=== PATIENT | female | born 1975 | race Caucasian/White ===

== ENCOUNTER 2022-09-06 07:00 | Emergency (ER) | payer MEDICAID, SELFPAY ==
[2022-09-06 07:01] VITALS: BP 143/89; PULSE 90; RESP 14; TEMP 36.3; O2SAT 100; BMI 24.5
--- NOTE | 2022-09-06 07:14 | EX.ED.VIS.UR ---
HPI HPI - URI History of Present Illness Chief Complaint: Ear Problem Informant: patient and spouse/S.O. Narrative Narrative: 47-year-old female presenting to the emergency room with 4 days of sore throat and bilateral ear pain. She notes an associated cough and rhinorrhea. She states she has bumps in the back of her throat and she has not been able to eat anything for 2 days she denies any rashes vomiting diarrhea. She notes that she has placed cotton in her ears because the cold makes her ears very sensitive and more painful. It was the increase in pain that led her to the emergency department this morning. ROS ROS ED Constitutional Constitutional ED: Denies chills, fever(s) or weight loss Eyes Eyes: Denies change in vision or diplopia ENT ENT ED: Reports ear pain, rhinorrhea and sore throat Cardiovascular Cardiovascular: Denies chest pain, orthopnea, palpitations or racing heartbeat Respiratory/Chest Respiratory/Chest: Reports cough; Denies dyspnea, dyspnea on exertion or orthopnea Gastrointestinal Gastrointestinal: Denies abdominal pain, diarrhea, nausea or vomiting Genitourinary Genitourinary ED: Denies dysuria, hematuria or urinary frequency Musculoskeletal Musculoskeletal: Denies arthralgias or myalgias Integumentary Denies abscess or rash Neurologic Neurologic: Denies headache(s) or weakness Psychiatric Psychiatric: Denies anxiety, depression, suicidal ideation or suicidal thoughts Endocrine Endocrinology: Denies polydipsia, polyphagia or polyuria Allergic/Immunologic Allergic/Immunologic ED: Denies mouth swelling, tongue swelling or urticaria PFSH PFSH Home Medications cefdinir 300 mg capsule 300 mg PO BID #20 caps 09/06/22 [Rx Last Taken Unknown] lidocaine HCl 2 % mucosal solution (Lidocaine Viscous) 5 ml PO TID PRN pain #200 mL 09/06/22 [Rx Last Taken Unknown] Allergy/AdvReac Type Severity Reaction Status Date / Time acetaminophen [From Vicodin] AdvReac Vomiting Verified 09/06/22 07:03 hydrocodone [From Vicodin] AdvReac Vomiting Verified 09/06/22 07:03 Social History (Updated 09/06/22 @ 07:[address] Yoan Petit, DO) current gender identity: female substance use type: does not use EXAM Physical Exam Const Vital Signs: 09/06/22 07:01 Temperature 97.3 F L Temperature Source Temporal Pulse Rate 90 Respiratory Rate 14 Blood Pressure 143/89 H Blood Pressure Mean 107 Pulse Ox 100 Oxygen Delivery Method Room Air Positive well nourished and well developed General Appearance ED: well developed HEENT Reports normocephalic, head/scalp atraumatic and moist mucous membranes HEENT Narrative: The patient appears to have a viral stomatitis with lesions of the soft palate. There is no exudate on the tonsils. Uvula is not swollen. She is handling her secretions normally and there is no trismus. Right tympanic membrane shows erythema bulging and loss of landmarks. The left tympanic membrane appears retracted Eyes PERRL and EOMs intact bilaterally Neck no lymphadenopathy, supple and no JVD Resp normal respiratory effort and clear to auscultation bilaterally Cardio regular rate, regular rhythm and no murmurs GI normal to inspection, nondistended, normoactive bowel sounds and non-tender Palpation: soft Back/Spine no CVA tenderness and normal ROM Extremity normal to inspection General Extremety ED: Negative for edema General Extremity: Negative for edema Neuro oriented x3 and CN's II-XII intact bilaterally Sensorium / Orientation: alert Motor Exam: strength 5/5 throughout Psych mental status grossly normal Mood & Affect: Negative for depressed or tearful Skin no rashes or lesions noted and no wounds MDM MDM MDM Narrative Medical decision making narrative: The patient will be started on Omnicef for the otitis media and viscous lidocaine for the viral stomatitis. Follow-up with primary care Discharge Plan Triage Chief Complaint: Ear Problem ED Provider: Yoan Petit Dx/Rx/DC Orders Clinical Impression: Stomatitis, Otitis media Instructions: ED Otitis Media Antibiotic ..., ED Stomatitis (Child) Prescriptions: New cefdinir 300 mg capsule 300 mg PO BID Qty: 20 0RF lidocaine HCl [Lidocaine Viscous] 2 % solution 5 ml PO TID PRN (Reason: pain) Qty: 200 0RF Rx Instructions: Gargle and spit Disposition Disposition: Home, Self Care
== END 2022-09-06 07:41 | disposition home or self-care (01) ==
LOC: ED 07:41
PROVIDERS: Emergency Provider Emergency Medicine; Visit Provider Emergency Medicine
DX: H66.93 Otitis media, unspecified, bilateral (principal); J02.9 Acute pharyngitis, unspecified; R51.9 Headache, unspecified; K12.1 Other forms of stomatitis
CPT/HCPCS: 99282

== ENCOUNTER 2025-06-03 18:40 | Inpatient (IN) | payer MEDICAID, SELFPAY ==
[2025-06-03 18:41] VITALS: BP 165/93; PULSE 74; RESP 16; TEMP 36.7; O2SAT 97; BMI 28.5
[2025-06-03 19:49] LABS: Hematocrit 34.4 % (37-47); Hemoglobin 11.3 g/dL (12.0-15.0); Immature Granulocytes Count 0.010 X10^3/uL (0.0-0.0); Mean Corp Hgb Conc 32.8 g/dL (32-36); Mean Corpuscular Volume 84.9 fL (81-99); Mean Platelet Vol. 9.9 fl (6.2-12.0); NRBC Flagged by Analyzer 0 % (0-5); Platelet Count 205 K/mm3 (150-450); RBC Distribution Width CV 15.5 % (11.6-14.6); RBC Distribution Width SD 48.0 fl (35.1-43.9); Red Blood Count 4.05 M/mm3 (4.2-5.4); White Blood Count 4.0 K/mm3 (4.4-11.0)
[2025-06-03 20:12] LABS: Internal QC Validated? YES +Cl - CLEAR BKGD; Pregnancy, Serum, hCG Quali. NEGATIVE Negative; Record Kit Lot#, Serum Preg. 962302
[2025-06-03 20:15] LABS: Alcohol, Blood (Medical)-Serum < 10.1 mg/dL (<=10.0)
[2025-06-03 20:16] LABS: Anion Gap 12 (5-15); BUN 14 mg/dL (4-19); BUN/Creat Ratio 12.1 RATIO (10-20); Calcium,Total 9.3 mg/dL (7.6-11.0); Carbon Dioxide 23.5 mmol/L (21.0-32.0); Chloride 103 mmol/L (98-108); Estimated Creatinine Clearance 55.16 ml/min (50-250); Glucose 99 mg/dL (70-99); Potassium 4.3 mmol/L (3.3-5.1)
--- NOTE | 2025-06-03 20:40 | EX.ED.DYSGE1 ---
HPI History of Present Illness Chief Complaint: Substance Abuse Narrative Narrative: Chief complaint and HPI: Opiate detox. 49-year-old female with past medical history of depression, anxiety, HTN, chronic pain presents for evaluation of detox from opiates. Patient states for the past 6 months she has been obtaining what she thinks is Percocet from a friend. States that she has been taking the medication every 4 hours. She states that she has decided that she would like help for her addiction. She states her last Percocet was at 8:30 AM. She denies history of other illicit drug use. Endorses chills at this time however denies any fever, shortness of breath, chest pain, abdominal pain, nausea, vomiting. Review of systems: See HPI Medications: As listed on the chart Allergies: As listed on the chart PFSH: Per chart Vital signs: As listed on the chart. Reviewed. Physical exam: Gen: A&O x3, NAD Head: Normocephalic, atraumatic Eyes: No sclera icterus, conjunctiva clear ENT: Moist mucous membranes Neck: Trachea midline, No JVD CV: RRR, no murmurs, no peripheral edema Resp: Lungs CTA BL, no w/r/c GI: Abd soft, non-distended, non-tender, no r/r/g Musc: Full ROM, no deformity Skin: Warm, dry Neuro: Alert, oriented, grossly intact, sensation intact Psych: Cooperative, appropriate mood and affect [facility] Home Medications Medication Instructions Recorded Last Taken Type amlodipine 5 mg tablet 5 mg PO DAILY 06/03/25 06/03/25 History buspirone 10 mg tablet 10 mg PO TID 06/03/25 06/03/25 History hydroxyzine HCl 50 mg tablet 50 mg PO Q6H 06/03/25 06/03/25 History lisinopril 20 1 tab PO DAILY 06/03/25 06/03/25 History mg-hydrochlorothiazide 12.5 mg tablet metoprolol succinate 50 mg 50 mg PO DAILY 06/03/25 06/03/25 History tablet,extended release 24 hr pantoprazole 40 mg tablet,delayed 40 mg PO DAILY 06/03/25 06/03/25 History release sertraline 100 mg tablet 100 mg PO DAILY 06/03/25 06/03/25 History Allergy/AdvReac Type Severity Reaction Status Date / Time No Known Allergies Allergy Verified 06/03/25 18:45 Social History (Updated 09/06/22 @ 07:[address] Yoan Petit, DO) Smoking Status: Current every day smoker tobacco type: cigarettes substance use type: does not use EXAM Physical Exam Const Vital Signs: 06/03/25 18:41 06/03/25 20:41 Temperature 98.1 F Temperature Source Temporal Pulse Rate 74 60 Respiratory Rate 16 16 Blood Pressure 165/93 H 164/90 H Blood Pressure Mean 117 114 Pulse Ox 97 100 Oxygen Delivery Method Room Air MDM MDM MDM Narrative Medical decision making narrative: 49-year-old female with past medical history of depression, anxiety, HTN, chronic pain presents for evaluation of detox from opiates. Patient states for the past 6 months she has been obtaining what she thinks is Percocet from a friend. States that she has been taking the medication every 4 hours. She states that she has decided that she would like help for her addiction. She states her last Percocet was at 8:30 AM. She denies history of other illicit drug use. On presentation, patient no acute distress. Vitals are stable. Triage protocol orders were placed. CBC with leukopenia of 4 and anemia of 11.3. I do not have previous labs to compare to. BMP unremarkable. Serum negative. Ethanol level unremarkable. Urine drug screen positive for fentanyl. Patient will warrant admission. Hospital service accepted admission. Patient confirmed understand the plan. Impression: 1. Opiate abuse 2. Requesting opiate detox/help with withdrawal symptoms Lab Data Labs: Laboratory Results - last 24 hr 06/03/25 06/03/25 19:40 20:00 WBC 4.0 L RBC 4.05 L Hgb 11.3 L Hct 34.4 L MCV 84.9 MCH 27.9 MCHC 32.8 RDW Std Deviation 48.0 H RDW Coeff of Barney 15.5 H Plt Count 205 MPV 9.9 Immature Gran % (Auto) 0.200 Neut % (Auto) 50.3 Lymph % (Auto) 33.4 Hendricks % (Auto) 7.9 Eos % (Auto) 7.7 H Baso % (Auto) 0.5 Absolute Neuts (auto) 2.0 Absolute Lymphs (auto) 1.35 Nucleated RBC % 0 Sodium 138 Potassium 4.3 Chloride 103 Carbon Dioxide 23.5 Anion Gap 12 BUN 14 Creatinine 1.15 Estim Creat Clear Calc 55.16 Est GFR (MDRD) Non-Af 59 L BUN/Creatinine Ratio 12.1 Glucose 99 Calcium 9.3 Serum , Qual NEGATIVE Urine Opiates Screen NEGATIVE U Buprenorphine Qual NEGATIVE Ur Oxycodone Screen NEGATIVE Urine Methadone Screen NEGATIVE Urine Fentanyl Screen PRESUMPTIVE POSITIVE Ur Barbiturates Screen NEGATIVE Ur Phencyclidine Scrn NEGATIVE Ur Amphetamines Screen NEGATIVE U Benzodiazepines Scrn NEGATIVE Urine Cocaine Screen NEGATIVE U Cannabinoids Screen NEGATIVE Ethyl Alcohol < 10.1 Discharge Plan Triage Chief Complaint: Substance Abuse Other Complaint: Lower Extremity Injury ED Provider: Stephan Schuster Dx/Rx/DC Orders Prescriptions: No Action hydroxyzine HCl 50 mg tablet 50 mg PO Q6H amlodipine 5 mg tablet 5 mg PO DAILY lisinopril-hydrochlorothiazide 20-12.5 mg tablet 1 tab PO DAILY metoprolol succinate 50 mg tablet extended release 24 hr 50 mg PO DAILY sertraline 100 mg tablet 100 mg PO DAILY pantoprazole 40 mg tablet,delayed release (DR/EC) 40 mg PO DAILY buspirone 10 mg tablet 10 mg PO TID Print Language: Estonian
[2025-06-03 20:41] VITALS: BP 164/90; PULSE 60; RESP 16; O2SAT 100
[2025-06-03 21:03] LABS: Barbiturate Urine NEGATIVE (< 200 ng/mL); Benzodiazepine Urine NEGATIVE (< 200 ng/mL); PCP Urine NEGATIVE (< 25 ng/mL); THC Urine NEGATIVE (< 50 ng/mL)
--- NOTE | 2025-06-03 21:40 | PCM.HP.STD ---
HPI - General General Date of Admission: 06/03/25 Date of Service: 06/03/25 Chief Complaint: Opiate withdrawal HPI Narrative YESICA HERNANDEZ, is a 49 F who presents to the emergency room with a chief complaint of opiate withdrawal. Patient has past medical history of 6 months of abuse of opiates for which she states she takes Percocet every 4 hours. Patient denies any IV drug abuse and denies any other classes of addictive medications. Patient feels agitated, tired and this is the first time she is going through a program for withdrawal. Patient denies any fevers chills, nausea vomiting or diarrhea at present time. She will be admitted to the general medical floor placed on opiate withdrawal protocol and case management for further help following discharge. [facility] Home Medications Medication Instructions Recorded Last Taken Type amlodipine 5 mg tablet 5 mg PO DAILY 06/03/25 06/03/25 History buspirone 10 mg tablet 10 mg PO TID 06/03/25 06/03/25 History hydroxyzine HCl 50 mg tablet 50 mg PO Q6H 06/03/25 06/03/25 History lisinopril 20 1 tab PO DAILY 06/03/25 06/03/25 History mg-hydrochlorothiazide 12.5 mg tablet metoprolol succinate 50 mg 50 mg PO DAILY 06/03/25 06/03/25 History tablet,extended release 24 hr pantoprazole 40 mg tablet,delayed 40 mg PO DAILY 06/03/25 06/03/25 History release sertraline 100 mg tablet 100 mg PO DAILY 06/03/25 06/03/25 History Allergy/AdvReac Type Severity Reaction Status Date / Time No Known Allergies Allergy Verified 06/03/25 18:45 Social History (Updated 09/06/22 @ 07:[address] Yoan Petit, DO) Smoking Status: Current every day smoker tobacco type: cigarettes substance use type: does not use ROS Constitutional Constitutional: Denies chills or fever(s) Eyes Eyes: Denies blurry vision ENT HEENT: Denies abnormal hearing Cardiovascular Cardiovascular: Denies chest pain Respiratory/Chest Respiratory/Chest: Denies shortness of breath at rest Gastrointestinal Gastrointestinal: Denies abdominal pain, nausea or vomiting Genitourinary Genitourinary: Denies dysuria Musculoskeletal Musculoskeletal: Denies back pain Neurologic Neurologic: Denies abnormal gait or abnormal speech Psychiatric Psychiatric: Reports anxiety Vital Signs Vital Signs Vital Signs: 06/03/25 18:41 06/03/25 20:41 Temperature 98.1 F Temperature Source Temporal Pulse Rate 74 60 Respiratory Rate 16 16 Blood Pressure 165/93 H 164/90 H Blood Pressure Mean 117 114 Pulse Ox 97 100 Oxygen Delivery Method Room Air Weight Weight: 156 lb 3.2 oz Body Mass Index (BMI) 28.5 Physical Exam Const oriented x3 General Appearance: cooperative and well developed HEENT normocephalic and head/scalp atraumatic Eyes PERRL Neck no lymphadenopathy Lymph Lymphatic: no lymphadenopathy noted Resp normal respiratory effort, normal air movement and clear to auscultation bilaterally Cardio regular rate, regular rhythm, S1 normal heart sound and S2 normal heart sound GI normal to inspection, nondistended, normoactive bowel sounds Extremity normal capillary refill Skin General Skin Exam: no breakdown Neuro no focal motor deficits and no sensory deficits noted Psych Attitude: agitated Results Lab / Micro Data 06/03/25 19:40 06/03/25 19:40 Labs: Laboratory Results - last 24 hr 06/03/25 19:40: WBC 4.0 L, RBC 4.05 L, Hgb 11.3 L, Hct 34.4 L, MCV 84.9, MCH 27.9, MCHC 32.8, RDW Std Deviation 48.0 H, RDW Coeff of Barney 15.5 H, Plt Count 205, MPV 9.9, Immature Gran % (Auto) 0.200, Neut % (Auto) 50.3, Lymph % (Auto) 33.4, Darke % (Auto) 7.9, Eos % (Auto) 7.7 H, Baso % (Auto) 0.5, Absolute Neuts (auto) 2.0, Absolute Lymphs (auto) 1.35, Nucleated RBC % 0, Sodium 138, Potassium 4.3, Chloride 103, Carbon Dioxide 23.5, Anion Gap 12, BUN 14, Creatinine 1.15, Estim Creat Clear Calc 55.16, Est GFR (MDRD) Non-Af 59 L, BUN/Creatinine Ratio 12.1, Glucose 99, Calcium 9.3, Serum , Qual NEGATIVE, Ethyl Alcohol < 10.1 06/03/25 20:00: Urine Opiates Screen NEGATIVE, U Buprenorphine Qual NEGATIVE, Ur Oxycodone Screen NEGATIVE, Urine Methadone Screen NEGATIVE, Urine Fentanyl Screen PRESUMPTIVE POSITIVE, Ur Barbiturates Screen NEGATIVE, Ur Phencyclidine Scrn NEGATIVE, Ur Amphetamines Screen NEGATIVE, U Benzodiazepines Scrn NEGATIVE, Urine Cocaine Screen NEGATIVE, U Cannabinoids Screen NEGATIVE Assessment & Plan Assessment/Plan (1) Opiate withdrawal: PLAN: Plan 1 opiate withdrawal–admit patient to medical surgical floor, placed patient on opiate withdrawal protocol and consult case management for discharge planning post therapy 2. DVT prophylaxis–patient is ambulatory and low risk for DVT at present time. Charges/Coding Visit Charges Inpatient E&M: 57198 Init Hosp L2
--- OUTSIDE RECORDS SUMMARY | 2025-06-03 22:13 | XMS RPT_ITS ---
category G1 nor G2 fulfill the criteria for CKD. The CKD-EPI equation is validated in individuals 18 years of age and older. Currently the best equation for estimating glomerular filtration rate (GFR) from serum creatinine in children is the Bedside Thompson equation. It is less accurate in patients with extremes of muscle mass, restriction of dietary protein, ingestion of creatine, extra-renal metabolism of creatinine, or treatment with medications that affect renal tubular creatinine secretion. Free PSA/Total PSA [Mass fraction] 7.6 g/dL 6.3 - 8.2 g/dL [facility] Work Phone: GFR/1.73 sq M.predicted among blacks MDRD (S/P/Bld) [Vol rate/Area] mL/min/{1.73_m2} >60 mL/min [facility] Work Phone: Glucose [Mass/Vol] 102 mg/dL High 70 - 100 mg/dL [facility] Work Phone: Interpretation and review of laboratory results Abnormal [facility] Work Phone: Potassium [Moles/Vol] 3.4 mmol/L Low 3.5 - 5.1 mmol/L [facility] Work Phone: Sodium [Moles/Vol] 140 mmol/L 135 - 145 mmol/L [facility] Work Phone: Urea nitrogen (BldV) [Mass/Vol] 13 mg/dL 9 - 20 mg/dL [facility] Work Phone: ED Provider Noteon 1 ED Provider Note Emergency Department Encounter [facility] EMERGENCY DEPT Patient: Yesica Gonzalez : 1975 Date of Evaluation: 09/15/2021 ED Supervising Physician: Tashi Keller DO I independently examined and evaluated Yesica Gonzalez. In brief, Yesica Gonzalez is a 46 y.o. female that presents to the emergency department for dental pain, swelling. Patient reports she is developed swelling the left side of her mouth. She has a known tooth issue. She states this has been getting worse. Denies fevers or chills. Contacted her family member in the emergency department due to worsening pain. Patient does tell she has been treating her pain at home with "at least 40 Tylenol today ". On further questioning, patient admits that she took at minimum 24 tablets of 500 mg Tylenol. We stressed the importance of being accurate with this as this would likely be an acute overdose. Patient adamant that she took these doses and not an attempt to harm herself. Does not describe any symptoms including nausea, vomiting, abdominal pain. No history of liver disease. Focused exam: GENERAL: Awake, alert, no apparent distress HEENT: Atraumatic, obvious swelling of the left facial area. There is poor dentition. There is tenderness on the left lower teeth. No visible abscess or drainage. No submandibular swelling. No posterior erythema or edema. No trismus. NECK: Trachea midline CV: Regular rate and rhythm, no murmurs, rubs or gallops RESPIRATORY: Clear breath sounds bilaterally. No respiratory distress. No accessory muscle use. GI: Abdomen soft, nontender throughout. No rigidity, rebound or guarding. NEURO: Alert and oriented x 3. Follows commands. Normal motor and sensation throughout. No focal deficits. SKIN: Warm, dry, no lesions noted PSYCH: Normal mood and affect Brief ED course/MDM: 46-year-old female presenting for dental pain. Vital signs reviewed and within normal limits. Exam reveals obvious swelling. Suspect this related to dental infection. We did attempt topical anesthetic which did not improve symptoms. For this reason she received pain medication. We did order laboratory work-up and spoke with poison control regarding patient's reported Tylenol overdose. For this reason we did order N-acetylcysteine. We did order Tylenol level. We ordered labs. Fortunately, patient's labs did not reflect acute Tylenol ingestion. Her Tylenol level was negative despite her taking Tylenol several hours prior. Her LFTs were within normal limits. She tells us that her ingestion occurred between 10 AM and 10 PM the previous day. We did discuss the results of her blood work with poison control and given these results did not feel that this represented Tylenol ingestion. Patient may have been taking a different medication which she thought was Tylenol. For this reason I not feel that she requires N-acetylcysteine this to be canceled. We did order a CT scan of the face to rule out abscess which did show soft tissue swelling without acute fluid collection. I do feel patient will be safe for discharge home on antibiotics, pain medications and follow-up with dentistry. All diagnostic, treatment, and disposition decisions were made by myself in conjunction with the Resident. I also supervised christian portions of any procedures performed by the Resident. For all further details of the patient's emergency department visit, please see their documentation. (Please note that portions of this note may have been completed with a voice recognition program. Efforts were made to edit the dictations but occasionally words are mis-transcribed.) Tashi Keller, DO [employer] Tashi Keller, DO 09/16/21 1525 Normal [facility] Hemogram (CBC) w/Auto DiffOr dered By: Altaf Caba on 09-16-2021 Absolute Baso # 0.0 10*3/uL 0.0 - 0.2 10*3/uL [employer] Work Phone: [phone] Absolute Neut # 6.0 10*3/uL 1.8 - 7.0 10*3/uL [employer] Work Phone: Basophils/100 WBC (Bld) 0.3 % 0.0 - 2.0 % [employer] Work Phone: Eosinophils (Bld) [#/Vol] 0.1 10*3/uL 0.0 - 0.5 10*3/uL [employer] Work Phone: Eosinophils/100 WBC (Bld) 0.9 % Low 1.0 - 6.0 % [employer] Work Phone: Granulocytes/100 WBC (Bld) 76.6 % 40.0 - 80.0 % [employer] Work Phone: Hematocrit (Bld) [Volume fraction] 40.2 % 35.0 - 47.0 % [employer] Work Phone: Hemoglobin.gastrointes tinal spec 1 Ql (Stl) 13.5 g/dL 11.7 - 16.0 g/dL [employer] Work Phone: Interpretation and review of laboratory results Abnormal [facility] Work Phone: Lymphocytes (Bld) [#/Vol] 1.1 10*3/uL 1.0 - 4.3 10*3/uL [employer] Work Phone: 22 Lymphocytes/100 WBC (Bld) 14.5 % Low 20.0 - 40.0 % [employer] Work Phone: 1( MCH (RBC) [Entitic mass] 33.3 pg 26.0 - 34.0 pg [employer] Work Phone: MCHC (RBC) [Mass/Vol] 33.6 % 32.0 - 36.0 % [employer] Work Phone: MCV (RBC) [Entitic vol] 99.3 fL High 79.0 - 98.0 fL [employer] Work Phone: Monocytes (Bld) [#/Vol] 0.6 10*3/uL 0.0 - 0.8 10*3/uL [employer] Work Phone: Monocytes/100 WBC (Bld) 7.7 % 2.0 - 10.0 % [employer] Work Phone: Platelet distribution width (Bld) [Ratio] 16.6 % High 11.5 - 14.5 % [employer] Work Phone: Platelet mean volume (Bld) [Entitic vol] 8.4 fL 7.4 - 10.4 fL [employer] Work Phone: Platelets (Bld) [#/Vol] 305 10*3/uL 140 - 440 10*3/uL [employer] Work Phone: RBC (Bld) [#/Vol] 4.05 10*6/uL 3.80 - 5.2 0 10*6/uL [employer] Work Phone: WBC (Bld) [#/Vol] 7.9 10*3/uL 3.6 - 10.7 10*3/uL [employer] Work Phone: Test Performed by [facility], [address] [place] [id number] [employer] Work Phone: [employer] Work Phone: Hemogram w/ Autodiffon 09-16 Abs Baso Cnt 0.0 10*3/uL Normal 0.0-0.2 [facility] Comment on above: Performed By: #### A CET4, CMP3, HEMDF, SAL33 #### [place] [address] [address] [place], [place] Abs Neutrophile Cnt 6.0 10*3/uL Normal 1.8-7.0 [facility] Comment on above: Performed By: #### A CET4, CMP3, HEMDF, SAL33 #### [place] [address] [place], [place] Basophils/100 WBC (Bld) 0.3 % Normal 0.0-2.0 [facility] Comment on above: Performed By: #### A CET4, CMP3, HEMDF, SAL33 #### [address] Eosinophils (Bld) [#/Vol] 0.1 10*3/uL Normal 0.0-0.5 [facility] Comment on above: Performed By: #### A CET4, CMP3, HEMDF, SAL33 #### [address] Eosinophils/100 WBC (Bld) 0.9 % Low 1.0-6.0 [facility] Comment on above: Performed By: #### A CET4, CMP3, HEMDF, SAL33 #### [address] Erythrocyte distribution width (RBC) [Ratio] 16.6 % High 11.5-14.5 [facility] Comment on above: Performed By: #### A CET4, CMP3, HEMDF, SAL33 #### [address] Granulocytes/100 WBC (Bld) 76.6 % Normal 40.0-80.0 [facility] Comment on above: Performed By: #### A CET4, CMP3, HEMDF, SAL33 #### [address] Hematocrit (Bld) [Volume fraction] 40.2 % Normal 35.0-47.0 [facility] Comment on above: Performed By: #### A CET4, CMP3, HEMDF, SAL33 #### [place] [address] [address] [place], [place] Hemoglobin (Bld) [Mass/Vol] 13.5 g/dL Normal 11.7-16.0 [facility] Comment on above: Performed By: #### A CET4, CMP3, HEMDF, SAL33 #### [place] [address] [address] [place], [place] Lymphocytes (Bld) [#/Vol] 1.1 10*3/uL Normal 1.0-4.3 [facility] Comment on above: Performed By: #### A CET4, CMP3, HEMDF, SAL33 #### [place] [address] [address] [place], [place] Lymphocytes/100 WBC (Bld) 14.5 % Low 20.0-40.0 [facility] Comment on above: Performed By: #### A CET4, CMP3, HEMDF, SAL33 #### [place] [address] [address] [place], [place] MCH (RBC) [Entitic mass] 33.3 pg Normal 26.0-34.0 [facility] Comment on above: Performed By: #### A CET4, CMP3, HEMDF, SAL33 #### [place] [address] [address] [place], [place] MCHC 33.6 % Normal 32.0-36.0 [facility] Comment on above: Performed By: #### A CET4, CMP3, HEMDF, SAL33 #### [place] [address] [address] [place], [place] MCV (RBC) [Entitic vol] 99.3 fL High 79.0-98.0 [facility] Comment on above: Performed By: #### A CET4, CMP3, HEMDF, SAL33 #### [place] [address] [address] [place], [place] Monocytes (Bld) [#/Vol] 0.6 10*3/uL Normal 0.0-0.8 [facility] Comment on above: Performed By: #### A CET4, CMP3, HEMDF, SAL33 #### [place] [address] [address] [place], [place] Monocytes/100 WBC (Bld) 7.7 % Normal 2.0-10.0 [facility] Comment on above: Performed By: #### A CET4, CMP3, HEMDF, SAL33 #### [place] [address] [address] [place], [place] Platelet mean volume (Bld) [Entitic vol] 8.4 fL Normal 7.4-10.4 [facility] Comment on above: Performed By: #### A CET4, CMP3, HEMDF, SAL33 #### [place] [address] [place], [place] Platelets (Bld) [#/Vol] 305 10*3/uL Normal 140-440 [facility] Comment on above: Performed By: #### A CET4, CMP3, HEMDF, SAL33 #### [place] [address] [place], [place] RBC (Bld) [#/Vol] 4.05 10*6/uL Normal 3.80-5.20 [facility] Comment on above: Performed By: #### A CET4, CMP3, HEMDF, SAL33 #### [place] [address] [address] [place], [place] WBC (Bld) [#/Vol] 7.9 10*3/uL Normal 3.6-10.7 [facility] Comment on above: Performed By: #### A CET4, CMP3, HEMDF, SAL33 #### [place] [address] [address] [place], [place] No Panel InformationOrdered By: Altaf Caba on 09-16-2021 Test Performed by [address] [address] [facility] Work Phone: [phone] [facility] Work Phone: [phone] SALICYLATE LEVELOrdered By: Altaf Caba on 09-16-2021 Salicylate Lvl <2.0 0.0 - 20.0 mg/dL [facility] Work Phone: [phone] Test Performed by [facility], [address] [place] [id number] [facility] Work Phone: [facility] Work Phone: Salicylateson 09-16-2021 Salicylates < 2.0 Normal 0.0-20.0 [facility] Comment on above: Performed By: #### A CET4, CMP3, HEMDF, SAL33 #### [address] [id number] Abdomen Pelvis Wo Contras ton 12-25-2019 [place], [facility] 12/25/2019 12:48 AM EST Patient Name: YESICA RAMSAY ---CT--- Exam Date/Time 12/25/2019 00:21:[address] Abdomen/Pelvis (No PO, No IV) Ordering Physician MD RAJAN PHILLIP I Accession Number [id number] CPT4 Codes 49710 (CT Abdomen/Pelvis (No PO, No IV)) Reason For Exam AP Report CT ABDOMEN AND PELVIS WITHOUT CONTRAST Indication: Right flank pain present for days radiating to the right lower quadrant with nausea Scan Parameters: Multiple axial 3mm images were obtained of the abdomen and pelvis without IV and without oral contrast. Coronal and sagittal reconstructions were reviewed as well. Comparison: None. FINDINGS: Evaluation of the abdomen and pelvis is limited due to lack of IV and oral contrast. Lung bases: The lung bases are clear. Osseous structures: Normal. Liver: The hepatic contour is upper limits of normal. Biliary tree: No biliary dilatation. The gallbladder is present, unremarkable. Spleen: Normal. Adrenals: Mild hypertrophy of the left adrenal gland versus tiny adrenal gland adenoma. The right adrenal gland is unremarkable. Pancreas: Normal. Kidneys: There is mild stranding surrounding the right kidney with mild hydronephrosis. Mild stranding along the proximal aspect of the right ureter. There is no obstructing calculus present. The left kidney is unremarkable. The bladder demonstrates mild wall thickening. Free fluid: None. Lymphadenopathy: None. Aorta: Normal caliber. Mild atherosclerotic changes present. Bowel: The appendix is present in the right lower quadrant and is within normal limits. The bowel gas pattern is nonspecific and nonobstructive. Other: The uterus is present with bilateral ovarian follicular cystic changes present. Umbilical jewelry is noted. IMPRESSION: Mild dilatation of the right renal collecting system with perinephric stranding and proximal periureteral stranding which may represent changes due to recent passing of calculus versus inflammatory infectious process. There is no obstructing renal or ureteral calculus. The appendix is normal. Bilateral ovarian follicular cystic changes. Report Dictated on Workstation: [id number] --- Final --- Dictated: 12/25/2019 0:41 am Dictating Physician: MD LANGE JENNIFER R Signed Date and Time: 12/25/2019 0:46 am Signed by: MD LANGE JENNIFER R Transcribed Date and Time: 12/25/2019 0:41 [facility] Work Phone: Patient Name: YESICA MONTEMAYOR ---CT--- Exam Date/Time 12/25/2019 00:21:[address] Abdomen/Pelvis (No PO, No IV) Ordering Physician MD RAJAN PHILLIP I Accession Number [id number] CPT4 Codes 93194 (CT Abdomen/Pelvis (No PO, No IV)) Reason For Exam AP Report CT ABDOMEN AND PELVIS WITHOUT CONTRAST Indication: Right flank pain present for days radiating to the right lower quadrant with nausea Scan Parameters: Multiple axial 3mm images were obtained of the abdomen and pelvis without IV and without oral contrast. Coronal and sagittal reconstructions were reviewed as well. Comparison: None. FINDINGS: Evaluation of the abdomen and pelvis is limited due to lack of IV and oral contrast. Lung bases: The lung bases are clear. Osseous structures: Normal. Liver: The hepatic contour is upper limits of normal. Biliary tree: No biliary dilatation. The gallbladder is present, unremarkable. Spleen: Normal. Adrenals: Mild hypertrophy of the left adrenal gland versus tiny adrenal gland adenoma. The right adrenal gland is unremarkable. Pancreas: Normal. Kidneys: There is mild stranding surrounding the right kidney with mild hydronephrosis. Mild stranding along the proximal aspect of the right ureter. There is no obstructing calculus present. The left kidney is unremarkable. The bladder demonstrates mild wall thickening. Free fluid: None. Lymphadenopathy: None. Aorta: Normal caliber. Mild atherosclerotic changes present. Bowel: The appendix is present in the right lower quadrant and is within normal limits. The bowel gas pattern is nonspecific and nonobstructive. Other: The uterus is present with bilateral ovarian follicular cystic changes present. Umbilical jewelry is noted. IMPRESSION: Mild dilatation of the right renal collecting system with perinephric stranding and proximal periureteral stranding which may represent changes due to recent passing of calculus versus inflammatory infectious process. There is no obstructing renal or ureteral calculus. The appendix is normal. Bilateral ovarian follicular cystic changes. Report Dictated on Workstation: [id number] --- Final --- Dictated: 12/25/2019 0:41 am Dictating Physician: MD LANGE JENNIFER R Signed Date and Time: 12/25/2019 0:46 am Signed by: MD LANGE JENNIFER R Transcribed Date and Time: 12/25/2019 0:41 [facility] Work Phone: [phone] Comprehensive Metabolic Pane joe 12-25-2019 Albumin [Mass/Vol] 4.1 g/dL 3.5 - 5 g/dL [facility] Work Phone: [phone] ALP [Catalytic activity/Vol] 119 U/L 38 - 126 U/L [facility] Work Phone: [phone] ALT [Catalytic activity/Vol] 21 U/L 13 - 69 U/L [facility] Work Phone: [phone] Anion gap [Moles/Vol] 9 mmol/L [facility] Work Phone: [phone] AST [Catalytic activity/Vol] 22 U/L 15 - 46 U/L [facility] Work Phone: Bilirubin Ql (U) 0.2 mg/dL 0.2 - 1.3 mg/dL [facility] Work Phone: [phone] Calcium [Mass/Vol] 9.4 mg/dL 8.4 - 10. 4 mg/dL [facility] Work Phone: Chloride [Moles/Vol] 103 mmol/L 98 - 10 7 mmol/L [facility] Work Phone: CO2 [Moles/Vol] 27 mmol/L 22 - 30 mmol/L [facility] Work Phone: [phone] Creatinine [Mass/Vol] 0.89 mg/dL 0.52 - 1.25 mg/dL [facility] Work Phone: [phone] IF NonAfrican South African >60.0 >60 mL/min [facility] Work Phone: Comment on above: Source- MDRD equatio n with creatinine calibration to IDMS(NKDEP) eGFR not recommended for drug dose adjustment GFR/1.73 sq M predicted among blacks MDRD (S/P/Bld) [Vol rate/Area] mL/min/{1.73_m2} >60 mL/min [facility] Work Phone: [phone] Glucose [Mass/Vol] 97 mg/dL 70 - 100 mg/dL [facility] Work Phone: [phone] Interpretation and review of laboratory results Abnormal [facility] Work Phone: Potassium [Moles/Vol] 3.3 mmol/L Low 3.5 - 5.1 mmol/L [facility] Work Phone: Protein [Mass/Vol] 7.1 g/dL 6.3 - 8.2 g/dL [facility] Work Phone: [phone] Sodium [Moles/Vol] 140 mmol/L 135 - 145 mmol/L [facility] Work Phone: [phone] Urea nitrogen [Mass/Vol] 11 mg/dL 7 - 20 mg/dL [employer] Work Phone: [phone] Test Performed by [facility], [address] [place] [id number] [employer] Work Phone: [phone] Hemogram (CBC) w/Auto Diffon 12-25-2019 Absolute Baso # 0.0 10*3/uL 0 - 0.2 10*3/uL [facility] Work Phone: [phone] Absolute Neut # 4.5 10*3/uL 1.8 - 7 10*3/uL [facility] Work Phone: [phone] Basophils/100 WBC (Bld) 0.6 % 0 - 2 % [facility] Work Phone: Eosinophils (Bld) [#/Vol] 0.1 10*3/uL 0 - 0.5 10*3/uL [facility] Work Phone: [phone] Eosinophils/100 WBC (Bld) 1.2 % 1 - 6 % [facility] Work Phone: Erythrocyte distribution width (RBC) [Ratio] 15.1 % High 11.5 - 14.5 % [facility] Work Phone: 22 Granulocytes/100 WBC (Bld) 73.4 % 40 - 80 % [facility] Work Phone: Hematocrit (Bld) [Volume fraction] 38.6 % 35 - 47 % [facility] Work Phone: Hemoglobin (Bld) [Mass/Vol] 13.1 g/dL 11.7 - 16 g/dL [facility] Work Phone: Interpretation and review of laboratory results Abnormal [employer] Work Phone: Lymphocytes (Bld) [#/Vol] 1.1 10*3/uL 1 - 4.3 10*3/uL [facility] Work Phone: 22 Lymphocytes/100 WBC (Bld) 18.5 % Low 20 - 40 % [facility] Work Phone: MCH (RBC) [Entitic mass] 32.2 pg 26 - 34 pg [facility] Work Phone: MCHC (RBC) [Mass/Vol] 34.0 % 32 - 36 % [facility] Work Phone: MCV (RBC) [Entitic vol] 94.6 fL 79 - 98 fL [facility] Work Phone: 22 Monocytes (Bld) [#/Vol] 0.4 10*3/uL 0 - 0.8 10*3/uL [facility] Work Phone: 22 Monocytes/100 WBC (Bld) 6.3 % 2 - 10 % [facility] Work Phone: Platelet mean volume (Bld) [Entitic vol] 8.4 fL 7.4 - 10.4 fL [facility] Work Phone: 22 Platelets (Bld) [#/Vol] 237 10*3/uL 140 - 440 10*3/uL [facility] Work Phone: [phone] RBC (Bld) [#/Vol] 4.07 10*6/uL 3.8 - 5.2 10*6/uL [employer] Work Phone: WBC (Bld) [#/Vol] 6.2 10*3/uL 3.6 - 10.7 10*3/uL [employer] Work Phone: 1 Test Performed by [facility], [facility] [place] [address] [employer] Work Phone: 1 HGC Urine Qual [place] 2019 Beta HCG ( test) Ql (U) Negative Negative NA [employer] Work Phone: Comment on above: is the mos t common reason for HCG in urine, although choriocarcinoma, hydatidiform mole, and certain nontropho- blastic malignancies also result in detectable urinary HCG levels. Sensitivity = 20mIU/mL. Test Performed by [facility] [employer] [facility], [address] [place] [address] [employer] Work Phone: 1 Urinalysison 12-24-2019 Appearance (U) Turbid Clear NA [employer] Work Phone: Bacteria, UA Few (1-5) Negative /[HPF] [employer] Work Phone: Bilirubin Urine Negative Negative mg/dL [employer] Work Phone: Color (U) YELLOW Lt. Yellow NA [employer] Work Phone: Glucose, Ur Normal Normal (<70) mg/dL [employer] Work Phone: Ketones Ql (U) Negative Negative mg/dL [employer] Work Phone: LEUKOCYTES, UA 500 Negative Capo/uL [employer] Work Phone: Nitrite, Urine Negative Negative NA [employer] Work Phone: Occult Blood,Urine 0.2 mg/dL Negative [employer] Work Phone: 1 pH (U) 6.0 [pH] [employer] Work Phone: 1 Protein (U) [Mass/Vol] 100 mg/dL Negative [facility] Work Phone: 1 RBC (U) [#/Vol] - 0 - 2 /[HPF] [facility] Work Phone: 1 Specific [place], Urine 1.016 [facility] Work Phone: 1 Squam Epithel, UA 11-25 3 - 5 /[HPF] [facility] Work Phone: 1 Urobilinogen, Urine 2 mg/dL Normal (0-1) [facility] Work Phone: 1 Volume 12 ml [facility] Work Phone: 1 WBC, UA >100 0 - 5 /[HPF] [facility] Work Phone: 1 Test Performed by [facility], [address] [place] [id number] [facility] Work Phone: 1 XR HAND GENERAL 3V PA/LAT/OB L RIGHT [facility] Vital Signs Date Time Vital Sign Value Performing Clinician Faci lity 03-26-2025 11:01-0400 Body height 157.5 cm Harjinder Lazo Jr., MD Work Phone: [facility] 03-26-2025 11:01-0400 Body mass index (BMI) [Ratio] 25.42 kg/m2 Harjinder Lazo Jr., MD Work Phone: [facility] 03-26-2025 11:01-0400 Body weight 63.05 kg Harjinder Lazo Jr., MD Work Phone: [facility] 03-26-2025 11:01-0400 Respiratory rate 18 /min Harjinder Lazo Jr., MD Work Phone: [facility] 02-12-2025 13:08-0400 Body height 157.5 cm Vinicio Do DO Work Phone: [facility] 02-12-2025 13:08-0400 Body mass index (BMI) [Ratio] 23.23 kg/m2 Vinicio Do DO Work Phone: [facility] 02-12-2025 13:08-0400 Body weight 57.61 kg Vinicio Ernestina DO Work Phone: [facility] 02-12-2025 13:08-0400 Respiratory rate 18 /min Vinicio Do DO Work Phone: [facility] 05-18-2022 14:39-0400 Body height 157.5 cm Marilee Ennis APRN.SAIL REPAIR PERSON Work Phone: [facility] 05-18-2022 14:39-0400 Body weight 57.61 kg Marilee Ennis APRN.SAIL REPAIR PERSON Work Phone: [facility] 05-18-2022 14:39-0400 Respiratory rate 16 /min Marilee Ennis APRN.SAIL REPAIR PERSON Work Phone: [facility] 09-16-2021 05:15-0400 Diastolic blood pressure 117 mm[Hg] Tashi Nesheim DO Work Phone: [facility] Work Phone: 09-16-2021 05:15-0400 Heart rate 75 /min Tashi Nesheim DO Work Phone: [facility] Work Phone: 09-16-2021 05:15-0400 Respiratory rate 15 /min Tashi Nesheim DO Work Phone: [facility] Work Phone: 09-16-2021 05:15-0400 SaO2% (BldA) [Mass fraction] 97 % Tashi Nesheim DO Work Phone: [facility] Work Phone: 09-16-2021 05:15-0400 Systolic blood pressure 158 mm[Hg] Tashi Nesheim DO Work Phone: [facility] Work Phone: 09-16-2021 02:13-0400 Body mass index (BMI) [Ratio] 21.95 kg/m2 Tashi Nesheim DO Work Phone: [facility] Work Phone: 09-16-2021 02:13-0400 Body weight 54.43 kg Tashi Nesheim DO Work Phone: [facility] Work Phone: 09-15-2021 23:03-0400 Body temperature 98.1 [degF] Tashi Nesheim DO Work Phone: [facility] Work Phone: 12-25-2019 02:20-0500 Body Temperature 98.1 [degF] Srinivasa ORANTES Work Phone: 12-25-2019 02:20-0500 BP Diastolic 86 mm[Hg] Srinivasa ORANTES Work Phone: 12-25-2019 02:20-0500 BP Systolic 177 mm[Hg] Srinivasa ORANTES Work Phone: 12-25-2019 02:20-0500 Pulse (Heart Rate) 78 /min Srinivasa ORANTES Work Phone: 12-25-2019 02:20-0500 Pulse Oximetry 100 % Srinivasa ORANTES Work Phone: 12-25-2019 02:20-0500 Respiratory Rate 18 /min Srinivasa ORANTES Work Phone: 12-24-2019 23:22-0500 BMI (Body Mass Index) 26.7 kg/m2 Srinivasa ORANTES Work Phone: 12-24-2019 23:22-0500 Body weight 66.22 kg Srinivasa ORANTES Work Phone: 12-24-2019 23:22-0500 Height 157.5 cm Srinivasa ORANTES Work Phone: Encounters Encounter Date Encounter Type Care Provider Facility Start: 04-18-2025 End: 04-18-2025 ambulatory HARJINDER LAZO JR Facility:[facility] Start: 04-02-2025 End: 04-02-2025 Orders Only Harjinder Lazo MD Work Phone: [facility] Orth[facility] Comment on above: Carpal tunnel syndro me of right wrist (Primary Dx); Trigger middle finger of right hand Start: 03-26-2025 End: 03-26-2025 Patient encounter procedure Harjinder Lazo MD Work Phone: [facility] Comment on above: Bilateral carpal josy joanna syndrome (Primary Dx); Trigger middle finger of right hand Start: 03-26-2025 End: 03-26-2025 ambulatory HARJINDER LAZO JR Facility:[facility] Start: 02-12-2025 End: 02-12-2025 Patient encounter procedure Vinicio Do DO Work Phone: [facility] Comment on above: Pain in both knees, unspecified chronicity (Primary Dx); Patellofemoral arthralgia of both knees; Bilateral primary osteoarthritis of knee; Effusion of left knee joint; Effusion, right knee Start: 02-12-2025 End: 02-12-2025 ambulatory VINICIO DO Facility:[facility] Start: 01-24-2025 End: 01-29-2025 Telephone encounter Ag Orth Work Phone: [facility] Comment on above: Appointment Start: 01-23-2025 End: 01-23-2025 ambulatory DEBBY Nima [facility] Comment on above: EMG; Musculoskeletal Problem Start: 01-23-2025 End: 01-23-2025 Patient encounter procedure Neur Lab Main [address] [facility] Start: 01-08-2025 ambulatory DEBBY Hidalgo FOSTORIA Facility :[facility] Start: 01-08-2025 End: 01-08-2025 Subsequent hospital visit by physician X[facility] Comment on above: swelling bilat Start: 01-08-2025 End: 01-08-2025 ambulatory DEBBY Hidalgo FOSTORIA Facility[facility] Start: 09-06-2022 End: 09-06-2022 Emergency department patient visit [facility] Facility:[facility] Start: 06-11-2022 End: 06-11-2022 ambulatory Tuyet Recinos DO Work Phone: [facility] Comment on above: EMG Start: 06-11-2022 End: 06-11-2022 Patient encounter procedure Tueyt Recinos DO Work Phone: [facility] Start: 05-18-2022 End: 05-18-2022 Patient encounter procedure Marilee Ennis APRN.SAIL REPAIR PERSON Work Phone: [facility] Comment on above: Arthritis of carpome tacarpal (CMC) joint of right thumb (Primary Dx); Ganglion cyst of volar aspect of left wrist; Carpal tunnel syndrome of right wrist Start: 05-18-2022 End: 05-18-2022 ambulatory Norah Juan OTR/L Work Phone: [facility] Occupational Therapy Comment on above: Pain of right thumb (Primary Dx) Start: 09-15-2021 End: 09-16-2021 Emergency department patient visit Tashi Waldronheim DO Work Phone: [facility] Emergency Dept Comment on above: Pain, dental (Primar y Dx); Essential hypertension; Mandibular swelling Start: 12-24-2019 End: 12-25-2019 Emergency department patient visit Srinivasa Rajan Work Phone: [facility] Dept Comment on above: Right flank pain (Pr imary Dx); Acute pyelonephritis Procedures Date Procedure Procedure Detail Performing Clinician Start: 02-12-2025 Radiologic examinati on knee 3 views Vinicio Ernestina DO Work Phone: Start: 05-18-2022 Radex hand minimum 3 views Marilee Ennis APRN.SAIL REPAIR PERSON Work Phone: Start: 09-16-2021 Ct soft tissue neck w/contrast material Tashi Keller DO Work Phone: Start: 09-16-2021 Assay of acetaminophen Altaf Caba MD Work Phone: Start: 09-16-2021 Assay of salicylate Vik Caba MD Work Phone: Start: 09-16-2021 Comprehensive metabo lic panel Altaf Caba MD Work Phone: Start: 12-25-2019 Ct abdomen & pelvis w/o contrast material Srinivasa Resendezchristi Work Phone: Start: 12-24-2019 Blood count complete auto&auto difrntl wbc Srinivasa Rajan Work Phone: Start: 12-24-2019 Comprehensive metabo lic panel Srinivasa Rajan Work Phone: Start: 12-24-2019 Urine test visual color cmprsn meths Srinivasa Rajan Work Phone: Start: 12-24-2019 Urnls dip stick/tabl et rgnt auto w/o microscopy Srinivasa Rajan Work Phone: Plan of Treatment Date Care Activity Detail Author Start: 07-15-2025 Influenza vaccination Influenz a Vaccine (Season Ended) [facility] Start: 05-03-2025 End: 05-03-2025 Patient encounter procedure 05/03/2025 10:45 AM EDT Office Visit [facility] [address] [place] [address] Harjinder Lazo Jr., MD [address] [place] [address] RT CTR A1 Pan Release RT MF [facility] Comment on above: RT CTR A1 Pan Rel ease RT Start: 04-18-2025 End: 04-18-2025 Admission to same day surgery center 04/18/2025 11:45 AM EDT - 04/18/2025 12:30 PM EDT Surgery [facility] [address] [place] [address] Harjinder Lazo Jr., MD [address] [place] [address] DECOMPRESSION NERVE MEDIAN CARPAL TUNNEL [facility] Comment on above: DECOMPRESSION NERVE MEDIAN CARPAL TUNNEL Start: 04-18-2025 End: 04-18-2025 Neuroplasty &/transpos median nrv carpal tunne DECOMPRESSION NERVE MEDIAN CARPAL TUNNEL Carpal tunnel syndrome of right wrist Trigger middle finger of right hand 04/18/2025 11:45 AM EDT [facility] Start: 04-18-2025 Subsequent hospital visit by physician 04/18/2025 11:45 AM EDT Hospital Encounter [facility] [address] [place] [address] Harjinder Lazo Jr., MD [address] [place] [address] Carpal tunnel syndrome of right wrist [G56.01], Trigger middle finger of right hand [M65.331] [facility] Comment on above: Carpal tunnel syndro me of right wrist [G56.01], Trigger middle finger of right hand [M65.331] Start: 04-18-2025 End: 04-18-2025 Tendon sheath incision RELEASE TRIGGER FINGER Carpal tunnel syndrome of right wrist Trigger middle finger of right hand 04/18/2025 11:45 AM EDT [facility] Start: 01-23-2025 End: 01-23-2025 ambulatory 01/23/2025 1:[address] [facility] [address] [place] [address] bilat uppers carpal tunnel syndrome dr shah fx [facility] Comment on above: bilat uppers carpal tunnel syndrome to fx Start: 09-16-2024 Diabetes Screening Diabetes Screenin g [facility] Start: 07-15-2024 Covid-19 Vaccine ( season) Covid-19 Vaccine ( season) [facility] Start: 07-15-2024 Influenza vaccination Influenza Vacc ine (#1) [facility] Start: 09-16-2022 Creatinine measurement Creatinine mo nitoring [facility] Work Phone: Start: 09-16-2022 Potassium monitoring Potassium monit oring [facility] Work Phone: Start: 07-15-2022 Influenza vaccination INFLUENZA (#1) [facility] Start: 2021 COLOGUARD (FIT-DNA) COLOGUARD (FIT-D NA) [facility] Start: [address] [facility] Start: 2021 COLORECTAL CANCER SCREENING COLORECTAL CANCER SCREENING [facility] Start: [address] COLONOGRAPHY [facility] Start: 2021 DIABETES SCREEN DIABETES SCREEN [facility] Start: 2021 FECAL OCCULT BLOOD FECAL OCCULT BLOO D [facility] Start: 2021 Lipid panel Lipid Screening [facility] Start: 2021 L[address] SCREEN LIPID SCREEN [facility] Start: 2021 Screening for malign ant neoplasm of colon [facility] Start: 2021 SIGMOIDOSCOPY SIGMOIDOSCOPY [facility] Start: 07-15-2021 Influenza vaccination Flu vaccine (# 1) [facility] Work Phone: Start: 07-15-2019 Influenza vaccination Flu vaccine (# 1) [facility] Work Phone: Start: [address] [facility] Start: 2016 Screening for malign ant neoplasm of breast Mammogram Screening [facility] Start: 2006 HPV TESTING HPV TESTING [facility] Start: 1997 PAP TESTING PAP TESTING [facility] Start: 1997 Screening for malign ant neoplasm of cervix Cervical Cancer Screening [facility] Start: 1995 Hepatitis B Vaccine (1 of 3 - 19+ 3-dose series) Hepatitis B Vaccine (1 of 3 - 19+ 3-dose series) [facility] Start: 1995 Pneumococcal vaccination Pneumococcal Vaccine (1 of 2 - PCV) [facility] Start: [address] [facility] Start: 1994 Anxiety Screening Anxiety Screening [facility] Start: 1994 Depression Screening Depression Scre [facility] Start: 1994 HEPATITIS C SCREENING HEPATITIS C [facility] Start: 1994 Hepatitis C screening Hepatitis C [facility] Start: 1994 HIV SCREENING HIV SCREENING [facility] Start: 1994 HIV screening HIV Screening [facility] Start: 1988 Adult depression screening assessment DEPRESSION SCREENING [facility] Start: 1988 COVID-19 Vaccine (1) COVID-19 Vaccin e (1) [facility] Work Phone: Start: 1982 PNEUMOCOCCAL (1 - PCV) PNEUMOCOCCAL (1 - PCV) [facility] Start: 02-28-1977 COVID-19 VACCINE (#1) COVID-19 VACCI NE (#1) [facility] Start: 1976 Creatinine monitoring Creatinine mon itoring [facility] Work Phone: Start: 1976 Potassium monitoring Potassium monit oring [facility] Work Phone: End: 12-25-2019 Bacteria identified Cx Nom (U) Urine Culture Microbiology STAT One Time for 1 Occurrences starting 12/25/2019 until 12/25/2019 [facility] Work Phone: Comment on above: One Time for 1 Occur rences starting 12/25/2019 until 12/25/2019 Bacteria identified Cx Nom (U) Urine Culture Microbiology STAT 12/24/2019 11:36 PM EST [facility] Work Phone: End: 05-18-2023 EMG(NEURO/NI) EMG(NEURO/NI) EMG Routine Arthritis of carpometacarpal (CMC) joint of right thumb 1 Occurrences starting 05/18/2022 until 05/18/2023 [facility] Work Phone: Comment on above: 1 Occurrences starti ng 05/18/2022 until 05/18/2023 OT PLAN OF CARE CERTIFICATION OT PLAN OF CARE CERTIFICATION Procedures Routine Pain of right thumb Ordered: 05/18/2022 [facility] Work Phone: Comment on above: Ordered: 05/18/2022 Payers Date Payer Category Payer Medicaid [employer] Member Thomas bscriber Plan / Payer (Effective 2022-Present) Name: Yesica Ding Relation to Subscriber: Self Name: Yesica Ding Payer ID: [id number] (NAIC) Type: Medicaid Address: [address] [address] [place] [address] [id number] 2022 Medicaid [id number] 2022 Self-pay [address] [facility] MEDICAID [id number] 2022-Present [phone] [address] [place] [address] Medicaid [id number] Unknown [id number] Social History Date Type Detail Facility Tobacco smoking stat us AKIS Unknown if ever smoked [employer] Work Phone: Start: 1975 Sex Assigned At Not on file [facility] Work Phone: Start: 09-15-2021 End: 02-12-2025 Tobacco smoking status NHIS Current every day smoker [facility] Start: 09-15-2021 End: 01-23-2025 Cigarettes smoked current (pack per day) - Reported [employer] Work Phone: Start: 09-15-2021 End: 02-12-2025 Tobacco use and exposure Never used [employer] Start: 09-15-2021 Alcohol intake Current drinke r of alcohol (finding) [employer] Work Phone: Start: 09-15-2021 Alcohol Comment occ [employer] Work Phone: Start: 05-08-2022 End: 06-11-2022 Exposure to SARS-CoV-2 (event) Not sure [facility] Start: 05-18-2022 End: 03-26-2025 Alcohol intake Ex-drinker (finding) [facility] Start: 06-11-2022 End: 01-23-[address] [facility] National Score (1-10 0), lower number is lower risk 80 [facility] History of tobacco use Cigarette Smoker C [facility] Clinical Notes 05-18-2022 to 04-18-2025 Harjinder Lazo Jr., MD - 03/26/2025 8:24 AM Vinicio Hartmann DO - 02/12/2025 3:39 PM Cristian Sánchez LPN - 02/12/2025 2:08 PM Cristian Sánchez LPN - 02/12/2025 12:59 PM EDT Note Date & Type Note Facility 04-18-2025 Note HNO ID: [id number] Author: VICK SMITH RN Service: Nursing Author Type: Registered Nurse Type: Nursing Progress Note Filed: 04/18/2025 13:50 Note Text: Pt d/cd from PACU in stable condition. [facility] 04-18-2025 Note HNO ID: [id number] Author: VICK SMITH, RN Service: Nursing Author Type: Registered Nurse Type: Nursing Progress Note Filed: 04/18/2025 13:49 Note Text: Dr. Lazo at the bedside to assess pts finger. Okay with d/c at this time. [facility] 03-26-2025 Note HNO ID: [id number] Author: HARJINDER LAZO JR, MD Service: ? Author Type: Physician Type: Progress Notes Filed: 03/26/2025 12:51 Note Text: CARPAL TUNNEL 03/26/2025 : 1975 HISTORY OF CHIEF COMPLAINT: Yesica Ding is a 49 year old female who is seeing me today for Carpal Tunnel Syndrome. HPI: Numbness and tingling in the median nerve distribution: bilateral DURATION: more than 1 year CHARACTER: Intermittent SEVERITY: Moderate TIMING: At night, During day, and Other repetitive activities DAILY ACTIVITIES: moderately PREVIOUS TREATMENT: None PAST MEDICAL HISTORY Diagnosis Date Hypertension No past surgical history on file. Social History Tobacco Use Smoking status: Every Day Current packs/day: 0.50 Types: Cigarettes Smokeless tobacco: Never Vaping Use Vaping status: Never Used Substance Use Topics Alcohol use: Not Currently Drug use: Never Medications: Current Outpatient Medications Medication Sig Dispense Refill metoprolol succinate ER (TOPROL XL) 50 mg 24 hr tablet Take 1 tablet by mouth once daily. LISINOPRIL ORAL Take by mouth as directed. busPIRone (BUSPAR) 15 mg tablet Take 15 mg by mouth three times a day. diflunisal (DOLOBID) 500 mg tab TAKE 1 TABLET BY MOUTH TWICE DAILY WITH FOOD OR MILK sertraline (ZOLOFT) 100 mg tablet Take 1 tablet by mouth once daily. amlodipine besylate (AMLODIPINE ORAL) Take 5 mg by mouth once daily. fluoxetine HCl (FLUOXETINE ORAL) Take 20 mg by mouth once daily. hydroCHLOROthiazide (HYDRODIURIL, ESIDRIX) 25 mg tablet Take 25 mg by mouth. ondansetron (ZOFRAN) 4 mg tablet Take 4 mg by mouth. (Patient not taking: Reported on 02/12/2025) naproxen (NAPROSYN) 500 mg tablet Take 1 tablet by mouth twice daily as needed (for pain). for pain. Take with food. 14 tablet 0 No current facility-administered medications for this visit. ALLERGIES Allergen Reactions Vicodin [Hydrocodon* Hives There were no vitals taken for this visit. PHYSICAL EXAMINATION: General: she is a well developed, well nourished female Psyche: she is alert and oriented and cooperative to our examination Skin: Skin condition is healthy without rashes or erythema. Cadiovascular: Palpable radial pulse with brisk cap refill distally Neck: Supple with no JVD Lymph: There is no palpable epitrochlear Pulmonary: There is non labored breathing. There is no evidence of cyanosis. There is no clubbing of his fingernails. she has no pursed lips. Neuro: she is alert and oriented x3. There are no focal neurologic deficits. See sensation exam below. Head: Normocephalic and atraumatic Musculoskeletal: Hand: Active triggering right middle finger NERVOUS SYSTEM: Tinel at wrist:positive on left, negative on right Tinel at elbow:not tested Median nerve compression test:positive Phalen's maneuver:positive Elbow flexion test: not tested Thenar Atrophy R:negative Thenar Atrophy L:negative Sensation:intact to light touch APB strength:5/5 Review of Studies: mild to moderate left carpal tunnel syndrome, and moderate right carpal tunnel syndrome. Assessment:Carpal Tunnel Syndrome bilateral Trigger middle finger of right hand RECOMMENDATIONS: Surgery Splints: Wear splints at night. Plan: I did discuss splinting, and injection, vs surgical intervention. The patient wants to proceed with surgery. I did offer her Right carpal tunnel release and A1 pan release right middle finger. I explained the risk, benefits, and potential complications of surgery. she understands these risks and agrees with the plan. We will schedule this at our earliest mutual convenience. All of the patients questions were answered to her satisfaction. I reviewed diagnosis with patient verbally. We discussed her treatment options in depth and established a course of treatment suited to her. We have made the decision to move forward with a major orthopaedic surgery today, and this represents the highest form of medical decision-making complexity. The patient's diagnosis of Bilateral carpal tunnel syndrome (primary encounter diagnosis) Trigger middle finger of right hand represents a chronic pathology/diagnosis/injury that represents a current or possible direct threat to bodily function. Will continue to monitor patient for Bilateral carpal tunnel syndrome (primary encounter diagnosis) Trigger middle finger of right hand, patient to schedule visit as per follow up discussed. Scribe Attestation: By signing my name below, I, Mara Vieyra MA, attest that this documentation has been prepared under the direction and in the presence of Harjinder Lazo Jr., MD. Electronically Signed: Mara Vieyra MA, Scribe. March 26, 2025 11:15 AM. Clinician Attestation Statement: The information in this document, created by the medical lab specialist for me, accurately reflects the services I personally performed and the decisions made by me. I hav (more content not included)... [facility] 03-26-2025 History of Presen t illness Narrative CARPAL TUNNEL 03/26/2025 : 1975 HISTORY OF CHIEF COMPLAINT: Yesica Ding is a 49 year old female who is seeing me today for Carpal Tunnel Syndrome. HPI: Numbness and tingling in the median nerve distribution: bilateral DURATION: more than 1 year CHARACTER: Intermittent SEVERITY: Moderate TIMING: At night, During day, and Other repetitive activities DAILY ACTIVITIES: moderately PREVIOUS TREATMENT: None PAST MEDICAL HISTORY Diagnosis Date Hypertension No past surgical history on file. Social History Tobacco Use Smoking status: Every Day Current packs/day: 0.50 Types: Cigarettes Smokeless tobacco: Never Vaping Use Vaping status: Never Used Substance Use Topics Alcohol use: Not Currently Drug use: Never Medications: Current Outpatient Medications Medication Sig Dispense Refill metoprolol succinate ER (TOPROL XL) 50 mg 24 hr tablet Take 1 tablet by mouth once daily. LISINOPRIL ORAL Take by mouth as directed. busPIRone (BUSPAR) 15 mg tablet Take 15 mg by mouth three times a day. diflunisal (DOLOBID) 500 mg tab TAKE 1 TABLET BY MOUTH TWICE DAILY WITH FOOD OR MILK sertraline (ZOLOFT) 100 mg tablet Take 1 tablet by mouth once daily. amlodipine besylate (AMLODIPINE ORAL) Take 5 mg by mouth once daily. fluoxetine HCl (FLUOXETINE ORAL) Take 20 mg by mouth once daily. hydroCHLOROthiazide (HYDRODIURIL, ESIDRIX) 25 mg tablet Take 25 mg by mouth. ondansetron (ZOFRAN) 4 mg tablet Take 4 mg by mouth. (Patient not taking: Reported on 02/12/2025) naproxen (NAPROSYN) 500 mg tablet Take 1 tablet by mouth twice daily as needed (for pain). for pain. Take with food. 14 tablet 0 No current facility-administered medications for this visit. ALLERGIES Allergen Reactions Vicodin [Hydrocodon* Hives There were no vitals taken for this visit. PHYSICAL EXAMINATION: General: she is a well developed, well nourished female Psyche: she is alert and oriented and cooperative to our examination Skin: Skin condition is healthy without rashes or erythema. Cadiovascular: Palpable radial pulse with brisk cap refill distally Neck: Supple with no JVD Lymph: There is no palpable epitrochlear Pulmonary: There is non labored breathing. There is no evidence of cyanosis. There is no clubbing of his fingernails. she has no pursed lips. Neuro: she is alert and oriented x3. There are no focal neurologic deficits. See sensation exam below. Head: Normocephalic and atraumatic Musculoskeletal: Hand: Active triggering right middle finger NERVOUS SYSTEM: Tinel at wrist:positive on left, negative on right Tinel at elbow:not tested Median nerve compression test:positive Phalen's maneuver:positive Elbow flexion test: not tested Thenar Atrophy R:negative Thenar Atrophy L:negative Sensation:intact to light touch APB strength:5/5 Review of Studies: mild to moderate left carpal tunnel syndrome, and moderate right carpal tunnel syndrome. Assessment:Carpal Tunnel Syndrome bilateral Trigger middle finger of right hand RECOMMENDATIONS: Surgery Splints: Wear splints at night. Plan: I did discuss splinting, and injection, vs surgical intervention. The patient wants to proceed with surgery. I did offer her Right carpal tunnel release and A1 pan release right middle finger. I explained the risk, benefits, and potential complications of surgery. she understands these risks and agrees with the plan. We will schedule this at our earliest mutual convenience. All of the patients questions were answered to her satisfaction. I reviewed diagnosis with patient verbally. We discussed her treatment options in depth and established a course of treatment suited to her. We have made the decision to move forward with a major orthopaedic surgery today, and this represents the highest form of medical decision-making complexity. The patient's diagnosis of Bilateral carpal tunnel syndrome (primary encounter diagnosis) Trigger middle finger of right hand represents a chronic pathology/diagnosis/injury that represents a current or possible direct threat to bodily function. Will continue to monitor patient for Bilateral carpal tunnel syndrome (primary encounter diagnosis) Trigger middle finger of right hand, patient to schedule visit as per follow up discussed. Scribe Attestation: By signing my name below, I, Mara Vieyra MA, attest that this documentation has been prepared under the direction and in the presence of Harjinder Lazo Jr., MD. Electronically Signed: Mara Vieyra MA, Scribe. March 26, 2025 11:15 AM. Clinician Attestation Statement: The information in this document, created by the medical lab specialist for me, accurately reflects the services I personally performed and the decisions made by me. I have reviewed and approved this document for accuracy. Harjinder Lazo MD Please note: This note has been produced using speech recognition software and may contain errors related to that system including grammar, punctuation, spelling, gender and words and phrases that may be inappropriate. documented in this encounter [facility] 02-12-2025 Note HNO ID: [id number] Author: VINICIO DO, DO Service: ? Author Type: Physician Type: Progress Notes Filed: 03/03/2025 15:48 Note Text: HPI: Yesica is a 49-year-old female presenting for evaluation of bilateral knee pain. Bilateral Knee Pain: - Onset approximately one year ago, with worsening over the past 2-3 months. - No known trauma; recalls squatting while dancing with her daughter over a year ago, followed by severe pain in the posterior lateral aspect of the knee. - Intermittent swelling in both knees, described as "half a softball" size, with increased warmth. - Intermittent locking and giving way, more pronounced in the left knee. - Denies significant relief from current knee braces, wraps, or compression. - Has not tried physical therapy. - Previously prescribed Dolobid, which caused nausea and did not alleviate pain. - Avoids NSAIDs due to past stomach issues. History of Osteoarthritis over 21 yo? yes Any altered function? Some pain, stiffness and swelling cause issues with weight bearing activities Reviewed pain scale and intake details associated with this visit documented in note PAST MEDICAL HISTORY Diagnosis Date Hypertension History reviewed. No pertinent surgical history. Social History Tobacco Use Smoking status: Every Day Current packs/day: 0.50 Types: Cigarettes Smokeless tobacco: Never Vaping Use Vaping status: Never Used Substance Use Topics Alcohol use: Not Currently Drug use: Never Current Outpatient Medications Medication Sig metoprolol succinate ER (TOPROL XL) 50 mg 24 hr tablet Take 1 tablet by mouth once daily. LISINOPRIL ORAL Take by mouth as directed. busPIRone (BUSPAR) 15 mg tablet Take 15 mg by mouth three times a day. diflunisal (DOLOBID) 500 mg tab TAKE 1 TABLET BY MOUTH TWICE DAILY WITH FOOD OR MILK amlodipine besylate (AMLODIPINE ORAL) Take 5 mg by mouth once daily. fluoxetine HCl (FLUOXETINE ORAL) Take 20 mg by mouth once daily. hydroCHLOROthiazide (HYDRODIURIL, ESIDRIX) 25 mg tablet Take 25 mg by mouth. naproxen (NAPROSYN) 500 mg tablet Take 1 tablet by mouth twice daily as needed (for pain). for pain. Take with food. sertraline (ZOLOFT) 100 mg tablet Take 1 tablet by mouth once daily. diclofenac (VOLTAREN ARTHRITIS PAIN) 1 % topical gel Apply 4 g to affected area four times daily for 20 days. ondansetron (ZOFRAN) 4 mg tablet Take 4 mg by mouth. (Patient not taking: Reported on 02/12/2025) No current facility-administered medications for this visit. ALLERGIES Allergen Reactions Vicodin [Hydrocodon* Hives Resp 18 Ht 5' 2" (1.58m) Wt 127 lb (57.6kg) BMI 23.22 kg/(m2). ROS: I have reviewed and agree with the ROS performed and documented within this office visit Cardiovascular: (-) heart issues Endocrine: (-) diabetes Musculoskeletal: (+) bilateral knee pain, (+) bilateral knee swelling, (+) bilateral knee locking, (+) left knee giving way, (+) knee warmth, (+) worse pain in mornings EXAM: General: Alert and oriented ?3 in no apparent distress. Gait: Normal gait without assistance Head: Normocephalic and atraumatic Psyche: Normal affect, good insight and eye contact, no irritability or inappropriate behavior Skin: Skin condition is healthy without rashes or erythema. Cadiovascular: Normal palpable distal pulses without focal edema or swelling Neck: Supple Pulmonary: Non labored breathing and no pursed lips. There is no evidence of cyanosis. Neuro: There are no focal neurologic deficits--normal gross sensory function Right Knee: - Trace effusion, no erythema or increased warmth, no tenderness on patella, medial or lateral joint lines; crepitus noted behind patella. - Provocative tests: No evidence of meniscal tear; ACL, PCL, MCL, and LCL intact with no laxity. Left Knee: - Small effusion, no erythema or increased warmth, no tenderness on patella, medial or lateral joint lines; crepitus noted behind patella. - Provocative tests: No evidence of meniscal tear; ACL, PCL, MCL, and LCL intact with no laxity. Assessment and Plan: 1. Pain in both knees, unspecified chronicity (M25.561) 2. Patellofemoral arthralgia of both knees (M22.2X1) 3. Bilateral primary osteoarthritis of knee (M17.0) - Knee pain began approximately one year ago, with worsening symptoms over the past 2-3 months. No specific injury or trauma reported. - X-rays reveal mild joint space narrowing in the lateral compartment of the right knee and minimal wear and tear behind the patella, consistent with early osteoarthritic changes and patellofemoral syndrome. - Discussed the role of quadriceps muscle imbalance and hamstring tightness in exacerbating patellofemoral arthralgia. - Initiated home exercise program focusing on quadriceps strengthening and hamstring flexibility. - Ordered physical therapy; patient advised to complete at least 6 sessions. Provided instructions on how to find a local PT provider (more content not included)... [facility] 02-12-2025 History of Presen t illness Narrative HPI: Yesica is a 49-year-old female presenting for evaluation of bilateral knee pain. Bilateral Knee Pain: - Onset approximately one year ago, with worsening over the past 2-3 months. - No known trauma; recalls squatting while dancing with her daughter over a year ago, followed by severe pain in the posterior lateral aspect of the knee. - Intermittent swelling in both knees, described as "half a softball" size, with increased warmth. - Intermittent locking and giving way, more pronounced in the left knee. - Denies significant relief from current knee braces, wraps, or compression. - Has not tried physical therapy. - Previously prescribed Dolobid, which caused nausea and did not alleviate pain. - Avoids NSAIDs due to past stomach issues. History of Osteoarthritis over 22 yo? yes Any altered function? Some pain, stiffness and swelling cause issues with weight bearing activities Reviewed pain scale and intake details associated with this visit documented in note PAST MEDICAL HISTORY Diagnosis Date Hypertension History reviewed. No pertinent surgical history. Social History Tobacco Use Smoking status: Every Day Current packs/day: 0.50 Types: Cigarettes Smokeless tobacco: Never Vaping Use Vaping status: Never Used Substance Use Topics Alcohol use: Not Currently Drug use: Never Current Outpatient Medications Medication Sig metoprolol succinate ER (TOPROL XL) 50 mg 24 hr tablet Take 1 tablet by mouth once daily. LISINOPRIL ORAL Take by mouth as directed. busPIRone (BUSPAR) 15 mg tablet Take 15 mg by mouth three times a day. diflunisal (DOLOBID) 500 mg tab TAKE 1 TABLET BY MOUTH TWICE DAILY WITH FOOD OR MILK amlodipine besylate (AMLODIPINE ORAL) Take 5 mg by mouth once daily. fluoxetine HCl (FLUOXETINE ORAL) Take 20 mg by mouth once daily. hydroCHLOROthiazide (HYDRODIURIL, ESIDRIX) 25 mg tablet Take 25 mg by mouth. naproxen (NAPROSYN) 500 mg tablet Take 1 tablet by mouth twice daily as needed (for pain). for pain. Take with food. sertraline (ZOLOFT) 100 mg tablet Take 1 tablet by mouth once daily. diclofenac (VOLTAREN ARTHRITIS PAIN) 1 % topical gel Apply 4 g to affected area four times daily for 20 days. ondansetron (ZOFRAN) 4 mg tablet Take 4 mg by mouth. (Patient not taking: Reported on 02/12/2025) No current facility-administered medications for this visit. ALLERGIES Allergen Reactions Vicodin [Hydrocodon* Hives Resp 18 Ht 5' 2" (1.58m) Wt 127 lb (57.6kg) BMI 23.22 kg/(m^2). ROS: I have reviewed and agree with the ROS performed and documented within this office visit Cardiovascular: (-) heart issues Endocrine: (-) diabetes Musculoskeletal: (+) bilateral knee pain, (+) bilateral knee swelling, (+) bilateral knee locking, (+) left knee giving way, (+) knee warmth, (+) worse pain in mornings EXAM: General: Alert and oriented 3 in no apparent distress. Gait: Normal gait without assistance Head: Normocephalic and atraumatic Psyche: Normal affect, good insight and eye contact, no irritability or inappropriate behavior Skin: Skin condition is healthy without rashes or erythema. Cadiovascular: Normal palpable distal pulses without focal edema or swelling Neck: Supple Pulmonary: Non labored breathing and no pursed lips. There is no evidence of cyanosis. Neuro: There are no focal neurologic deficits--normal gross sensory function Right Knee: - Trace effusion, no erythema or increased warmth, no tenderness on patella, medial or lateral joint lines; crepitus noted behind patella. - Provocative tests: No evidence of meniscal tear; ACL, PCL, MCL, and LCL intact with no laxity. Left Knee: - Small effusion, no erythema or increased warmth, no tenderness on patella, medial or lateral joint lines; crepitus noted behind patella. - Provocative tests: No evidence of meniscal tear; ACL, PCL, MCL, and LCL intact with no laxity. Assessment and Plan: 1. Pain in both knees, unspecified chronicity (M25.561) 2. Patellofemoral arthralgia of both knees (M22.2X1) 3. Bilateral primary osteoarthritis of knee (M17.0) - Knee pain began approximately one year ago, with worsening symptoms over the past 2-3 months. No specific injury or trauma reported. - X-rays reveal mild joint space narrowing in the lateral compartment of the right knee and minimal wear and tear behind the patella, consistent with early osteoarthritic changes and patellofemoral syndrome. - Discussed the role of quadriceps muscle imbalance and hamstring tightness in exacerbating patellofemoral arthralgia. - Initiated home exercise program focusing on quadriceps strengthening and hamstring flexibility. - Ordered physical therapy; patient advised to complete at least 6 sessions. Provided instructions on how to find a local PT provider. - Prescribed Voltaren gel 4 grams topically QID for 20 days; sent prescription to [facility] in [place]. - Advised continued use of knee braces and application of ice packs 3-5 times daily for 3-5 days during episodes of swelling. - Discussed potential for cortisone injections if conservative measures fail; patient prefers to defer injections at this time. - Follow-up if no improvement after 6 PT sessions to consider MRI for further evaluation of meniscal or ligamentous pathology. 4. Effusion of left knee joint (M25.462) 5. Effusion, right knee (M25.461) - Physical exam reveals small effusion in the left knee and trace effusion in the right knee, with intermittent warmth indicating inflammation. - No signs of erythema or increased warmth suggestive of infection. - Advised that effusions may decrease with conservative management including ice application and topical anti-inflammatory treatment. - Will monitor response to current treatment plan; consider aspiration and cortisone injection if significant effusion persists. Reviewed previous notes and documentation available in epic Reviewed and interpreted x-rays performed in the office today including: If any red flags including but not limited to acute significantly increased pain, significant decreased ROM, numbness or tingling or focal weakness are present recommended seeking immediate evaluation at ER. All questions answered and patient voiced understanding and agreement with testing and treatment plan. Last XR Knee - Impression Only XR KNEE INJURY 4V AP/LAT/OBLS BILATERAL Collected: 01/08/2025 2:50 PM (Final result) Impression: IMPRESSION: See above. 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 XRAY INTERPRETATION: 3 views, bilateral PA weight bearing, lateral and sunrise views performed--mild to moderate anterior and medial compartment degenerative changes more advanced on right than left, but no acute bony abnormality or fracture noted. Assessment: Mild to moderate degenerative changes anterior and medial compartments worse on right than left otherwise normal bilateral knees I spent a total of 46 minutes on the date of the service which included preparing to see the patient, [id number] patient care, completing clinical documentation, obtaining and/or reviewing separately obtained history, performing a medically appropriate examination, counseling and educating the patient/family/caregiver, ordering medications, tests, or procedures, independently interpreting results (not separately reported), communicating results to the patient/family/caregiver, and care coordination (not separately reported). Recording using [employer] software for draft documentation of the visit was discussed with the patient/authorized senior account representative; all questions welcomed and answered. Patient/authorized senior account representative agreed to proceed Vinicio Do DO Dr Do ordered the following DME which was properly fitted for the patient: DME: Left and Right Pepe-Pull Size: Large Consent signed/DME dispensed : NA Patient declined DME: NA Fitted and dispensed by: Cristian Yip LPN Patient voices no concerns and walked out wearing devices stating no issues with ambulation Cristian Yip LPN Location of pain: daniella knee Symptoms started: on going since 1 year ago however has been worse in the past 2-3 months, Injury: left leg, patient thinks she injured her left knee by squatting down. BWC: no Seen by Dr Rowell, Dr Smith or Dr Do in past 3 years?: no referred by [facility] Pain at rest: 6/10, sharp, shooting, throbbing Pain at times up to : 10/10 patient states she was unable to walk Seen for this injury already: Axes Previous treatment: xray, ultrasound Previous imaging: xray, ultrasound Previous surgery/fracture: no Previous injection: no Additional History related to concern: no . REVIEW OF SYSTEMS: GENERAL: Well developed, well nourished. No acute distress PAIN: Pain up to a 10/10, sitting 6/10 sharp, shooting, throbbing CARDIOVASCULAR: Negative for chest pain, leg swelling and palpations. MSK: Positive for joint swelling SKIN: Negative for lesions, rash, itching, metal sensitivity NEURO: tingling in arms and fingers ENDOCRINE: Negative for diabetic associated symptoms HEMATOLOGY: Negative for excessive bleeding, clots, bleeding disorders. documented in this encounter [facility] 02-12-2025 Note HNO ID: [id number] Author: CRISTIAN YIP LPN Service: ? Author Type: LICENSED NURSE Type: Progress Notes Filed: 03/04/2025 12:33 Note Text: Dr Do ordered the following DME which was properly fitted for the patient: DME: Left and Right Pepe-Pull Size: Large Fitted and dispensed by: Cristian Yip LPN Brace was applied to both knees. Educated patient on how to apply at home and how to check for circulation. Patient voices no concerns and walked out wearing devices stating no issues with ambulation Cristian Yip LPN [facility] 02-12-2025 Instructions Vinicio Do DO - 02/12/2025 1:52 PM EDT Intermittent Ice or Ice massage with ice cup made in papercup 3-5 min 3-5 times a day for 3-5 days Intermittent heat, Gentle Range of Motion and home exercises as directed If no SE or contraindications consider topical Nsaid--Voltaren gel 4 gm 4 times a days for 3-5 days and tylenol (acetominphen) for pain if needed 500-1000mg per dose up to 3 doses or total 3000mg per day Recommend formal Physical therapy as discussed Recommend brace for support as directed until follow-up Follow-up with Dr Do for recheck over the next 6 weeks if persistent/worsening pain after 6 visits of PT If any red flags including but not limited to acute significantly increased pain, significant decreased ROM, numbness or tingling or focal weakness are present recommended seeking immediate evaluation at ER. documented in this encounter [facility] 02-12-2025 Note HNO ID: [id number] Author: CRISTIAN YIP LPN Service: ? Author Type: LICENSED NURSE Type: Progress Notes Filed: 03/03/2025 15:48 Note Text: Location of pain: daniella knee Symptoms started: on going since 1 year ago however has been worse in the past 2-3 months, Injury: left leg, patient thinks she injured her left knee by squatting down. BWC: no Seen by Dr Rowell, Dr Smith or Dr Do in past 3 years?: no referred by [facility] Pain at rest: 6/10, sharp, shooting, throbbing Pain at times up to : 10/10 patient states she was unable to walk Seen for this injury already: Calin Previous treatment: xray, ultrasound Previous imaging: xray, ultrasound Previous surgery/fracture: no Previous injection: no Additional History related to concern: no . REVIEW OF SYSTEMS: GENERAL: Well developed, well nourished. No acute distress PAIN: Pain up to a 10/10, sitting 6/10 sharp, shooting, throbbing CARDIOVASCULAR: Negative for chest pain, leg swelling and palpations. MSK: Positive for joint swelling SKIN: Negative for lesions, rash, itching, metal sensitivity NEURO: tingling in arms and fingers ENDOCRINE: Negative for diabetic associated symptoms HEMATOLOGY: Negative for excessive bleeding, clots, bleeding disorders. [facility] 01-25-2025 Telephone encounter Note PC to [phone] and left vm message to schedule for OA of B/L knees, referred by [facility]. PC on referral is not a valid number. Miri Phillips January 25, 2025 2:[address] [facility] 01-25-2025 Miscellaneous Notes PC to [phone] and left vm message to schedule for OA of B/L knees, referred by [facility]. PC on referral is not a valid number. Miri Phillips January 25, 2025 2:13 PM PC to [phone] and left vm message to schedule for OA of B/L knees, referred by [facility]. Miri Phillips January 24, 2025 8:48 AM documented in this encounter [facility] 01-24-2025 Telephone encounter Note PC to [phone] and left vm message to schedule for OA of B/L knees, referred by [facility]. Miri Phillips January 24, 2025 8:[address] [facility] 01-23-2025 Note HNO ID: [id number] Author: TUYET RECINOS DO Service: ? Author Type: Physician Type: Procedures Filed: 01/23/2025 14:56 Note Text: Patient Name: Yesica Ding Date: January 23, 2025 Patient : 1975 Patient Age: [age] year old CC: Patient presents with: EMG UNIVERSAL PROTOCOL / SAFETY CHECKLIST Procedure to be Performed: B/L UE EMG, referral from Debby Oscar CNP Sign In: A Moment of CARE was completed. Personnel directly involved with the procedure wore the appropriate PPE (Personal Protective Equipment). Patient/Surrogate Stated/Verified: PATIENT VERIFIED(optional for EMERGENT procedures): Patient name, Date of , Relevant allergies and The intended procedure Time Out Communication: Consent documented and matches the intended procedure. Sign Out: SIGN OUT (optional for EMERGENT procedures): No specimen collected. Patient is aware of potential risks and benefits of this procedure. Patient wishes to proceed. Electrodiagnostic testing was performed today was significant for bilateral carpal tunnel syndrome of moderate severity on the right and mild to moderate severity on the left without signs of active denervation. Full report and data will be scanned into the chart. Tuyet Recinos DO [facility] 01-23-2025 Procedure note Patient Name: Yesica Ding Date: January 23, 2025 Patient : 1975 Patient Age: [age] year old CC: Patient presents with: EMG UNIVERSAL PROTOCOL / SAFETY CHECKLIST Procedure to be Performed: B/L UE EMG, referral from Debby Oscar CNP Sign In: A Moment of CARE was completed. Personnel directly involved with the procedure wore the appropriate PPE (Personal Protective Equipment). Patient/Surrogate Stated/Verified: PATIENT VERIFIED(optional for EMERGENT procedures): Patient name, Date of , Relevant allergies and The intended procedure Time Out Communication: Consent documented and matches the intended procedure. Sign Out: SIGN OUT (optional for EMERGENT procedures): No specimen collected. Patient is aware of potential risks and benefits of this procedure. Patient wishes to proceed. Electrodiagnostic testing was performed today was significant for bilateral carpal tunnel syndrome of moderate severity on the right and mild to moderate severity on the left without signs of active denervation. Full report and data will be scanned into the chart. Tuyet Recinos DO [facility] 01-23-2025 Procedure note Patient Name: Yesica Ding Date: January 23, 2025 Patient : 1975 Patient Age: [age] year old CC: Patient presents with: EMG UNIVERSAL PROTOCOL / SAFETY CHECKLIST Procedure to be Performed: B/L UE EMG, referral from Debby Oscar CNP Sign In: A Moment of CARE was completed. Personnel directly involved with the procedure wore the appropriate PPE (Personal Protective Equipment). Patient/Surrogate Stated/Verified: PATIENT VERIFIED(optional for EMERGENT procedures): Patient name, Date of , Relevant allergies and The intended procedure Time Out Communication: Consent documented and matches the intended procedure. Sign Out: SIGN OUT (optional for EMERGENT procedures): No specimen collected. Patient is aware of potential risks and benefits of this procedure. Patient wishes to proceed. Electrodiagnostic testing was performed today was significant for bilateral carpal tunnel syndrome of moderate severity on the right and mild to moderate severity on the left without signs of active denervation. Full report and data will be scanned into the chart. Tuyet Recinos DO documented in this encounter [facility] 06-11-2022 Procedure note Patient Name: Yesica Ding Date: June 11, 2022 Patient : 1975 Patient Age: [age] year old CC: Patient presents with: EMG Vitals: There were no vitals taken for this visit. The H&P completed on 05/18/22 I have reviewed the history and physical and examined the patient and there are no changes unless noted below: No update and/or changes to Yesica Ding history and physical. UNIVERSAL PROTOCOL / SAFETY CHECKLIST Procedure to be Performed: RUE EMG, referral from Marilee Ennis CNP Sign In: A Moment of CARE was completed. Personnel directly involved with the procedure wore the appropriate PPE (Personal Protective Equipment). Patient/Surrogate Stated/Verified: PATIENT VERIFIED(optional for EMERGENT procedures): Patient name, Date of , Relevant allergies and The intended procedure Time Out Communication: Consent documented and matches the intended procedure. Sign Out: SIGN OUT (optional for EMERGENT procedures): No specimen collected. Patient is aware of potential risks and benefits of this procedure. Patient wishes to proceed. Electrodiagnostic testing was performed today was significant for right carpal tunnel syndrome of mild to moderate severity without signs of active denervation. Full report and data will be scanned into the chart. Tuyet Recinos DO documented in this encounter [facility] 05-18-2022 History of Presen t illness Narrative Episode Visit Count: 1 Therapist That Will Oversee The Plan Of Care: Norah Juan Start of Care Date: 05/18/22 Onset Date: 05/18/22 Plan of Care Certification Date: 05/18/22 Next Certification Due Date: 06/17/22 Patient Identified by Name and Date of : Yes [facility] OCCUPATIONAL THERAPY EVALUATION/DISCHARGE PLAN OF CARE: Assessment: Yesica Ding presents with diagnosis of right thumb CMC arthritis that interferes with physical activities;recreational activities . She presents with impairments in ADL's, overall function and symptom management. PROMIS (Patient-Reported Outcomes Measurement Information System) scores were reviewed and physical function domain identified as a rehabilitation concern. Prognosis for therapy is Good due to: current objective clinical presentation;good overall health status;acuteness of condition . As patient is independent in use of splint and home symptom management program, OT is discharged. Patient agreed to return if symptom management worsens she will benefit from skilled therapy services to meet the goals established for this plan of care as noted below. Goals for Episode of Care created on 05/18/22 through 06/17/22 Patient will report a good understanding of diagnosis and OT recommendations for progression of program. Achieved 05/18/2022 Patient will demonstrate independence with ongoing home recommendations/exercise program throughout therapy plan of care. Achieved 05/18/2022 Patient will independently demonstrate correct application of PREFABRICATED orthosis and verbalize understanding of proper wear/care. Achieved 05/18/2022 Patient will report a good understanding of the use of edema and pain reducing modalities to help manage discomfort and promote healing. Achieved 05/18/2022 Patient will independently demonstrate good joint protection/body mechanics/postural control techniques during prior functional tasks. Achieved 05/18/2022 Patient Goals: Reduce pain Planned Interventions, Frequency, and Duration: Current Frequency: 1 visit Duration: 1 visit Total Number of Visits Planned: 1 Planned Treatment Interventions: Prefabricated orthosis fitting;Self-custodial management ([id number]);Orthotics management and training ([id number]);Patient/Family/Car egiver Education PLAN FOR NEXT VISIT: Patient discharged with splint and home symptom management program. Patient advised to contact OT for splint modifications and for modifications to home symptom management program Patient demonstrates good understanding of plan of care and treatment. The above goals and plan of care were discussed and agreed upon by patient/family. 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 5 points is clinically meaningfully difference Percentiles provide an indication of how the patient's score ranks in relation to the general population. Higher percentile rankings indicate better function/quality of life. 50th percentile is the average of the general population and indicates half of respondents had a worse score. T-scores: mean of general population = 50. 5 points is clinically meaningfully difference Percentiles provide an indication of how the patient's score ranks in relation to the general population. Higher percentile rankings indicate better function/quality of life. 50th percentile is the average of the general population and indicates half of respondents had a worse score. OBJECTIVE MEASURES WITH LEVEL OF FUNCTION: Hand Edema Location: Right thumb Edema Description: Mild Shoulder AROM: WFL Elbow AROM: WFL Wrist AROM: WFL Right Hand AROM: WFL Thumb AROM: WFL Sensation: Denies tingling or numbness Dexterity/Coordination: Observed to be functional UE AROM Right Hand AROM: WFL Thumb AROM: WFL Education: Education Learning Preferences: Demonstration;Explanation;Perfor bari Barriers: None Learning/educational needs: Safety;Home exercise program;Plan of Care;Brace Fit;Health promotion Education Provided: Yes, see treatment interventions for education provided Education Provided To: Patient Education Mode/Type: Demonstration;Explanation/Discus rochelle;Literature/Printed Materials;Performance Response to Education/Teach Back: States/Identifies;Return Demonstration TREATMENT: OT Treatment Interventions : Self-Senior Care Management;Orthotic Mgmt/Train (Initial);Prefabricated Orthosis Fitting Evaluation Self-Senior Care Management: 1: Reviewed diagnosis, prognosis, and POC 2: Reviewed edema and pain reduction techniques and handout issued. 3: Reviewed use and purchase of compression glove to decrease pain and edema. Patient agreed to purchase 4: Reviewed wear and care of thumb CMC orthosis 5: Reviewed joint protection techniques and handout issued Skilled Intervention: Skilled judgment in the selection of proper modification for activity of daily living/home management based on clinical presentation, deficits, and needs. Provided written instruction for activities of daily living techniques to facilitate proper performance and compliance. Reviewed patient specific diagnosis in relation to activities of daily living/home management. Activity progression based on professional judgement. Reviewed and educated patient on additions/changes for home program Prefabricated orthosis: L 3923 (a) HFO w/out joints (PUSH Metagrip, Actimove) Prefabricated orthosis to provide immobilization, protection and support of right thumb CMC joint to prevent pain and joint deformity. Patient was instructed in wear and care. Instructed in wearing schedule As needed day and/or night for pain relief.. Skilled Intervention: Technical skill required for proper fitting of pre-fabricated orthotic and wearing schedule Patient/caregiver was educated in correct method for donning/doffing orthosis as well as wear and care of orthosis. Orthotics Management and Training: OT Orthotic Mgmt/Train (Initial): Patient fitted with R1 MetaGrip thumb CMC orthosis and good fit noted. Patient noted mild, immediate relief with proper positioning of thumb and splint patient advised to wear splint as tolerated to reduce pain during her daily activities. Patient presented with a long thumb spica brace and patient was advised to use this brace during sleep time patient agreed Billing * Evaluation Low Complexity: 1 Unit Self-Care/Home Management Treatment Minutes: 15 Orthotic Mgmt/Train (Initial) Treatment Minutes: 10 * L 3923 (a) HFO w/out joints (PUSH Metagrip, Actimove): 1 Total Treatment Time Minutes (timed/untimed): 35 KAE Chow, CHT documented in this encounter [facility] 05-18-2022 History of Presen t illness Narrative Images from the original note were not included. Marilee Ennis CNP Hand & Upper Extremity Surgery [address], [place] [address], [place] [address], [place] [address], [place] [address] [address], [place] [address] OUTPATIENT VISIT SERVICE DATE: 05/18/2022 CHIEF COMPLAINT: Right wrist cyst, pain, and numbness/tingling HISTORY OF PRESENT ILLNESS: Yesica Ding is a Right Handed 46 year old female with a PMHx of HTN who presents for above chief complaint. Patient is Referred by Debby Oscar CNP. Patient does not recall a specific injury. Pain has been worsening over the last month. Admits to numbness/tingling that wakes her up at night. 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 Patient has tried tylenol Symptoms aggravated by: Tight flight software test engineer, opening a bottle, pinch Occupation/Activities: unemployed PMDP report reviewed and All prescriptions have been APPROPRIATELY filled. No suspicious activity was identified. History is obtained by: patient Reviewed nursing note and current pain scale. PAST MEDICAL HISTORY Diagnosis Date Hypertension No past surgical history on file. No family history on file. Social History Tobacco Use Smoking status: Current Every Day Smoker Smokeless tobacco: Never Used Substance Use Topics Alcohol use: Not Currently Drug use: Never MEDICATIONS: Current Outpatient Medications Medication Sig hydroCHLOROthiazide (HYDRODIURIL, ESIDRIX) 25 mg tablet Take 25 mg by mouth. ondansetron (ZOFRAN) 4 mg tablet Take 4 mg by mouth. naproxen (NAPROSYN) 500 mg tablet Take 1 tablet by mouth twice daily as needed (for pain). for pain. Take with food. No current facility-administered medications for this visit. ALLERGIES: ALLERGIES Allergen Reactions Vicodin [Hydrocodon* Hives PHYSICAL EXAM: VITAL SIGNS: Resp 16 Ht 5' 2" (1.58m) Wt 127 lb (57.6kg) BMI 23.22 kg/(m^2). GENERAL: The patient is well developed and well nourished, awake, alert, and oriented with appropriate mood and affect. Normal gait and station. SKIN: The skin over the right hand shows no rash, lesion or erythema, and that is comparable to the contralateral hand. INSPECTION/PALPATION: There is no gross asymmetry compared to the contralateral hand. There is localized swelling about the thumb CMC joint, with no obvious shoulder sign deformity. There is no palpable joint effusion. There is a well circumscribed cystic mass over the volar/radial aspect of the wrist, along the course of the radial artery, measuring approximately 1mm in diameter. Mass does transilluminate. There is no gross asymmetry compared to the contralateral hand. There is no focal swelling, and no palpable joint effusion. TENDERNESS: There is tenderness to palpation about the right CMC joint with a positive grind test. Hyperextension of the right thumb reproduces the pain. There is no tenderness at the STT joint. There is no tenderness with palpation over the 1st dorsal compartment. There is tenderness over the cystic mass. There is mild tenderness to palpation along the thenar musculature. ROM: There is limited range of motion of the thumb, and there is an adducted posture to the thumb. No limited ROM to wrist. Able to make full composite fist. LIGAMENTS: There is no compensatory hyperextension of the MP joint. MUSCLE: Communications Coordinator and pinch strength are decreased due to pain. No thenar atrophy present. APB strength 5/5. NEURO: The patient reports some decreased sensation to the thumb, index, and long finger. Positive Tinel's at the wrist. Negative Tinels over mass. + Phalen's test, + Case's test. Negative Tinel's over the ulnar nerve at the right elbow. VASCULAR: Strong radial pulse. Excellent capillary refill to all digits. Imagin views (PA, lateral, oblique) of the right hand were obtained, reviewed and interpreted and demonstrate some degenerative changes noted to 1st CMC joint. No acute fracture, dislocation, or soft tissue swelling. No osseous abnormality over volar ganglion cyst location. OTHER TESTS: None ASSESSMENT AND PLAN: (M18.11) Arthritis of carpometacarpal (CMC) joint of right thumb (primary encounter diagnosis) (M67.432) Ganglion cyst of volar aspect of left wrist (G56.01) Carpal tunnel syndrome of right wrist - We discussed the treatment options for volar ganglion cysts which include observation versus excisional biopsy. I discussed with the patient that due to the nature of nearby structures which can be closely associated with the mass, I do not recommend in-office aspiration. - Discussed the treatment algorithm for thumb CMC arthritis which includes hand-based thumb braces, topical anti-inflammatories, oral anti-inflammatories, steroid injections and surgical intervention in late stages. Patient wishes to Proceed with meta flight software test engineer thumb brace to wear during the day. - Rx given for Naproxen - Discussed the pathology of the carpal tunnel compression from thickening of the transverse carpal ligament versus flexor tenosynovitis pathology. Also discussed that given the anatomy of the median nerve there can be concomitant cervical spine pathology that presents similarly. Therefore, I recommend EMG/NCV to better ascertain the area and severity of compression. I also recommend cock up wrist brace for the affected extremity during sleep to help maintain the wrist in neutral and decrease nighttime symptoms. - Will follow up in 2-3 weeks to eval for improvement of all symptoms Patient/family acknowledges understanding of instructions: Yes Patient advised to call with questions or concerns Follow up in 2-3 weeks or after EMG. No X-Rays Needed Marilee Ennis APRN.HEATHER This note was generated using [employer] voice dictation. All resonable efforts were made to correct dictation errors but they still may occur given the nature of the software. Phone: [phone] FAX: [phone] (Fshsq) REVIEW OF SYSTEMS: GENERAL: Well developed, well nourished. No acute distress PAIN: Negative for pain, history of chronic pain or current treatment for chronic pain conditions CARDIOVASCULAR: Negative for chest pain, leg swelling and palpations. MSK: Positive for joint swelling SKIN: Negative for lesions, rash, itching, metal sensitivity NEURO: Negative for seizure, trauma, numbness/tingling of extremities. ENDOCRINE: Negative for diabetic associated symptoms HEMATOLOGY: Negative for excessive bleeding, clots, bleeding disorders. documented in this encounter [facility] Evaluation note Diagnosis Pain, dental- Primary Unspecified disorder of the teeth and supporting structures Essential hypertension Unspecified essential hypertension Mandibular swelling Swelling, mass, or lump in head and neck documented in this encounter [facility] Work Phone: Evaluation note* Diagnosis Arthritis of carpometacarpal (CMC) joint of right thumb- Primary Ganglion cyst of volar aspect of left wrist Carpal tunnel syndrome of right wrist Carpal tunnel syndrome [facility] Diagnosis Pain of right thumb- Primary Pain in limb [facility] Diagnosis Disturbance of skin sensation- Primary [facility] Diagnosis Disturbance of skin sensation- Primary [facility] Diagnosis Pain in both knees, unspecified chronicity- Primary Patellofemoral arthralgia of both knees Pain in joint, lower leg Bilateral primary osteoarthritis of knee Effusion of left knee joint Effusion of lower leg joint Effusion, right knee [facility] Bilateral carpal tunnel syndrome- Primary Carpal tunnel syndrome Trigger middle finger of right hand Trigger finger (acquired) [facility] Carpal tunnel syndrome of right wrist- Primary Carpal tunnel syndrome Trigger middle finger of right hand Trigger finger (acquired) Carpal tunnel syndrome of right wrist Carpal tunnel syndrome Trigger middle finger of right hand Trigger finger (acquired) [facility]* Instructions* Altaf Caba MD - 09/16/2021 Call dentist listed above this morning to arrange follow-up appointment for further care. Take all medications as prescribed including [id number] medications as recommended by manufacture label. * Attachments The following attachments cannot be sent through Care Everywhere. * Tooth and Gum Pain (Angolan) [facility] Reason for referral (narrative)* Outpatient Procedure (Routine) - Pending Review Specialty Diagnoses / Procedures Referred By Contact Referred To Contact [facility] Diagnoses Arthritis of carpometacarpal (CMC) joint of right thumb Procedures EMG(NEURO/NI) NERVE CONDUCTION STUDIES 9-10 STUDIES Marilee Ennis APRN.SAIL REPAIR PERSON [address] [facility] [address] [place] [address] [facility] [place] [address] [place] [address] Referral ID Status Reason Start Date Expiration Date Visits Requested Visits Authorized [id number] Pending Review Auto-Generat ed Referral 05/18/2022 05/18/2023 1 1 * Diagnostic Procedure Only (Routine) - Pending Review Specialty Diagnoses / Procedures Referred By Contac t Referred To Contact XR IMAGING Diagnoses Arthritis of carpometacarpal (CMC) joint of right thumb Procedures XR HAND GENERAL 3V PA/LAT/OBL RIGHT RADEX HAND MINIMUM 3 VIEWS Marilee Ennis APRN.SAIL REPAIR PERSON [address] [address] Xr Imaging Referral ID Status Reason Start Date Expiration Date Visits Requested Visits Authorized [id number] Pending Review Auto-Generat ed Referral 05/18/2022 06/17/[address] [facility] Discharge Instructions * Attachments The following attachments cannot be sent through Care Everywhere. * Pyelonephritis (Angolan) * Flank Pain (Angolan) documented in this encounter Assessments Diagnosis Right flank pain- Primary Abdominal pain, unspecified site Acute pyelonephritis Acute pyelonephritis without lesion of renal medullary necrosis Reason for Referral Status Reason Specialty Diagnoses / Procedures Referred By Contact Referred To Contact Open Specialty Services Required Dentistry Diagnoses Pain, dental Mandibular swelling [facility] [address] [place] [address] Jessica Su DDS [address] [place] [address] Scheduling Instructions [facility] [address] [place] [address] Summary Purpose Family History No Family History Records FoundNo Family History Records FoundNo Family History Records FoundNo Family History Records FoundNo Family History Records Found Advance Directives No Advanced Directives Records FoundNo Advanced Directives Records FoundNo Advanced Directives Records FoundNo Advanced Directives Records FoundNo Advanced Directives Records Found Additional Source Comments Reason for Visit (unrecogniz ed section and content) Reason Comments Flank Pain right Reason Comments Dental Pain PT states L side of her mouth is swollen. Pt states she is unsure if it is from her tooth or jaw. Reason Comments New Reason Comments OT EVAL OT Discharge Specialty Diagnoses / Procedures Referred By [facility] Referred To Contact Occupational Therapy / OCCUPATIONAL THERAPY Diagnoses right thumb arthritis L3923 Procedures NEW RS OT HAND Marilee Ennis APRN.SAIL REPAIR PERSON [address] [place] [address] Norah Juan OTR/L [address] [place] [address] Referral ID Status Reason Start Date Expiration Date V isits Requested Visits Authorized [id number] Pending Review 05/18/2022 07/17/2022 1 1 Reason Comments EMG Reason Comments EMG Musculoskeletal Problem Specialty Diagnoses / Procedures Referred By [facility] Referred To Contact [facility] Diagnoses Carpal tunnel syndrome, bilateral upper limbs bilat uppers carpal tunnel syndrome dr to fx Procedures NDL EMG 2 XTR W/WO RELATED PARASPINAL AREAS NERVE CONDUCTION STUDIES 1-2 STUDIES EMG & NCV Debby Oscar, SAIL REPAIR PERSON [address] [place] [address] Phone: tel: fax: [facility] [address] [place] [address] Phone: tel: fax: Referral ID Status Reason Start Date Expiration Date Visits Re quested Visits Authorized [id number] Closed 12/12/2024 11/13/2025 1 1 Reason Comments Appointment Reason Comments New Swelling Knee Pain Reason Comments New Ordered Prescriptions (unrec ognized section and content) Prescription Sig Dispensed Refills Start Date End Da te ibuprofen (IBU) 600 MG tablet Take 1 tablet by mouth every 6 hours as needed for Pain 20 tablet 0 09/16/2021 amoxicillin-clavulanate (AUGMENTIN) 875-125 MG per tablet Take 1 tablet by mouth 2 times daily for 7 days 14 tablet 0 09/16/2021 09/23/2021 Scheduled Active and Recently Administ ered Medications (unrecognized section and content) Medication Order 09/14/2021 09/15/2021 09/16/2021 amLODIPine (NORVASC) tablet 5 mg (COMPLETED) 5 mg, Oral, ONCE, On Tue09/16/21 at 0345, For 1 dose 412 (Given - Provid er: Khloe Rodriguez RN) ampicillin-sulbactam (UNASYN) 3,000 mg in sodium chloride 0.9 % 100 mL IVPB (ADD-VANTAGE) (COMPLETED) 3,000 mg, IntraVENous, ONCE, 1 dose, On Tue09/16/21 at 0315 0351 (New Bag - Prov ider: Khloe Rodriguez RN)0526 (Stopped - Provider: Khloe Rodriguez RN) hydroCHLOROthiazide (HYDRODIURIL) tablet 25 mg (COMPLETED) 25 mg, Oral, ONCE, On Tue09/16/21 at 0345, For 1 dose 412 (Given - Provid er: Khloe Rodriguez RN) ketorolac (TORADOL) injection 15 mg (COMPLETED) 15 mg, IntraVENous, ONCE, On Tue09/16/21 at 0345, For 1 dose, Do not administer for more than 5 days. 411 (Given - Provid er: Khloe Rodriguez RN) lisinopril (PRINIVIL;ZESTRIL) tablet 10 mg (COMPLETED) 10 mg, Oral, ONCE, On Tue09/16/21 at 0345, For 1 dose 412 (Given - Provid er: Khloe Rodriguez RN) metoprolol tartrate (LOPRESSOR) tablet 25 mg (COMPLETED) 25 mg, Oral, ONCE, On Tue09/16/21 at 0345, For 1 dose 412 (Given - Provid er: Khloe Rodriguez RN) morphine sulfate (PF) injection 4 mg (COMPLETED) 4 mg, IntraVENous, ONCE, On Tue09/16/21 at 0430, For 1 dose, If oral and IV narcotics ordered, use oral first and only use IV if oral is ineffective or cannot take oral. Do Not give oral and IV within 1 hour of each other unless specifically ordered. 0527 (Given - Provid er: Khloe Rodriguez RN) sodium chloride flush 0.9 % injection 3 mL(Linked Group 1) 3 mL, IntraVENous, EVERY 8 HOURS, First dose on Tue09/16/21 at 0145, Flush line with 3-5 mL 0528 (Given - Provid er: Khloe Rodriguez RN)0945 (Due)1745 (Due) Linked Groups Order Group 1: Saline lock IV (COMPLETED) Routine, CONTINUOUS, Starting on Tue09/16/21 at 0145, Until Specified And sodium chloride flush 0.9 % injection 3 mLJump to med 3 mL, IntraVENous, EVERY 8 HOURS, First dose on Tue09/16/21 at 0145
Flush line with 3-5 mL
INFORMATION SOURCE (unrecogn ized section and content) DATE CREATED AUTHOR 09/17/2021 [facility] DATE CREATED AUTHOR AUTHOR'S ORGANIZ ATION 09/19/2021 [facility] DATE CREATED AUTHOR AUTHOR'S ORGANIZ ATION 05/13/2022 [facility] DATE CREATED AUTHOR AUTHOR'S ORGANIZ ATION 09/14/2022 [facility] DATE CREATED AUTHOR AUTHOR'S ORGANIZ ATION 04/19/2025 [facility] Source Comments (unrecognize d section and content) In the event this informatio n is protected by the Federal Confidentiality of Alcohol and Drug Abuse Patient Records regulations: The Federal rules restrict any use of the information to criminally investigate or prosecute any alcohol or drug abuse patient.[facility] the event this information is protected by the Federal Confidentiality of Alcohol and Drug Abuse Patient Records regulations: The Federal rules restrict any use of the information to criminally investigate or prosecute any alcohol or drug abuse patient.[facility] the event this information is protected by the Federal Confidentiality of Alcohol and Drug Abuse Patient Records regulations: The Federal rules restrict any use of the information to criminally investigate or prosecute any alcohol or drug abuse patient.[facility] the event this information is protected by the Federal Confidentiality of Alcohol and Drug Abuse Patient Records regulations: The Federal rules restrict any use of the information to criminally investigate or prosecute any alcohol or drug abuse patient.[facility] the event this information is protected by the Federal Confidentiality of Alcohol and Drug Abuse Patient Records regulations: The Federal rules restrict any use of the information to criminally investigate or prosecute any alcohol or drug abuse patient.[facility] the event this information is protected by the Federal Confidentiality of Alcohol and Drug Abuse Patient Records regulations: The Federal rules restrict any use of the information to criminally investigate or prosecute any alcohol or drug abuse patient.[facility] the event this information is protected by the Federal Confidentiality of Alcohol and Drug Abuse Patient Records regulations: The Federal rules restrict any use of the information to criminally investigate or prosecute any alcohol or drug abuse patient.[facility] the event this information is protected by the Federal Confidentiality of Alcohol and Drug Abuse Patient Records regulations: The Federal rules restrict any use of the information to criminally investigate or prosecute any alcohol or drug abuse patient.[facility] the event this information is protected by the Federal Confidentiality of Alcohol and Drug Abuse Patient Records regulations: The Federal rules restrict any use of the information to criminally investigate or prosecute any alcohol or drug abuse patient.[facility] Care Teams (unrecognized sec tion and content) Warm In Relationship Specialty Start Date End Date Debby Oscar, HEATHER [address] [place] [address] PCP - General Internal Medicine 05/06/22 Warm In Relationship Specialty Start Date End Date [place] CNP [address] [place] [address] PCP - General Internal Medicine 05/06/22 Warm In Relationship Specialty Start Date End Date [place] CNP [address] [place] [address] PCP - General Internal Medicine 05/06/22 Warm In Relationship Specialty Start Date End Date [place] CNP [address] [place] [address] PCP - General Internal Medicine 05/06/22 Warm In Relationship Specialty Start Date End Date [place] CNP [address] [place] [address] PCP - General Internal Medicine 05/06/22 Warm In Relationship Specialty Start Date End Date [place] CNP [address] [place] [address] PCP - General Internal Medicine 05/06/22 Warm In Relationship Specialty Start Date End Date [place] CNP [address] [place] [address] PCP - General Internal Medicine 05/06/22 Warm In Relationship Specialty Start Date End Date New ConcordDebby CNP [address] [place] [address] PCP - General Internal Medicine 05/06/22 Warm In Relationship Specialty Start Date End Date [place]Debby CNP [address] [place] [id number] PCP - General Internal Medicine 05/06/22 FOR RECORDS PERTAINING TO PATIENTS WHO ARE OR HAVE BEEN ENROLLED IN A CHEMICAL DEPENDENCY/SUBSTANCEABUSE PROGRAM, SOME INFORMATION MAY BE OMITTED. This clinical summary was aggregated from multiple sources. Caution should be exercised in using it in the provision of clinical care. This summary normalizes information from multiple sources, and as a consequence, information in this document may materially change the coding, format and clinical context of patient data. In addition, data may be omitted in some cases. CLINICAL DECISIONS SHOULD BE BASED ON THE PRIMARY CLINICAL RECORDS. [facility]. provides no warranty or guarantee of the accuracy or completeness of information in this document.
[2025-06-03 22:23] VITALS: BP 131/78; PULSE 68; RESP 16; TEMP 36.6; O2SAT 99
[2025-06-03 22:38] VITALS: BMI 28.0
[2025-06-03 22:53] VITALS: BP 155/117; PULSE 74; RESP 16; TEMP 36.7; O2SAT 100
[2025-06-04] VITALS (8 sets, daily range): BP systolic 162–184; BP diastolic 90–105; PULSE 81–89; RESP 16–24; TEMP 36.4–36.9; O2SAT 94–99
[2025-06-04] MEDS: hydrOXYzine PAM 25 MG Capsule 50 MG PO ×5 (00:06→23:46)
[2025-06-04] MEDS: Metoprolol(XL)Succ 50 MG Tablet PO (14:21)
--- NOTE | 2025-06-04 14:30 | PN_ITS ---
Subjective Subjective Patient seen and examined. She complains of some nausea and withdrawal symptoms. She denies any fever or chills or aches. Review of systems otherwise negative. She has remained hemodynamically stable. Objective Data Objective Data Vital Signs: Vital Signs Temp Pulse Resp BP Pulse Ox O2 Del Method 98.4 F 88 16 172/96 H 97 Room Air 06/04/25 12:49 06/04/25 14:21 06/04/25 12:49 06/04/25 14:21 06/04/25 12:49 06/04/25 12:49 Oxygen Delivery Method Room Air Weight: 153 lb 3.54 oz Body Mass Index (BMI) 28.0 Intake & Output: Intake and Output for Last 24 Hours 06/02/25 06/03/25 06/04/25 23:59 23:59 23:59 Intake Total 200 / 200 Balance 200 / 200 Lab / Micro Data 06/03/25 19:40 06/03/25 19:40 Labs: Laboratory Results - last 24 hr 06/03/25 19:40: WBC 4.0 L, RBC 4.05 L, Hgb 11.3 L, Hct 34.4 L, MCV 84.9, MCH 27.9, MCHC 32.8, RDW Std Deviation 48.0 H, RDW Coeff of Barney 15.5 H, Plt Count 205, MPV 9.9, Immature Gran % (Auto) 0.200, Neut % (Auto) 50.3, Lymph % (Auto) 33.4, [place] % (Auto) 7.9, Eos % (Auto) 7.7 H, Baso % (Auto) 0.5, Absolute Neuts (auto) 2.0, Absolute Lymphs (auto) 1.35, Nucleated RBC % 0, Sodium 138, Potassium 4.3, Chloride 103, Carbon Dioxide 23.5, Anion Gap 12, BUN 14, Creatinine 1.15, Estim Creat Clear Calc 55.16, Est GFR (MDRD) Non-Af 59 L, BUN/Creatinine Ratio 12.1, Glucose 99, Calcium 9.3, Serum , Qual NEGATIVE, Ethyl Alcohol < 10.1 06/03/25 20:00: Urine Opiates Screen NEGATIVE, U Buprenorphine Qual NEGATIVE, Ur Oxycodone Screen NEGATIVE, Urine Methadone Screen NEGATIVE, Urine Fentanyl Screen PRESUMPTIVE POSITIVE, Ur Barbiturates Screen NEGATIVE, Ur Phencyclidine Scrn NEGATIVE, Ur Amphetamines Screen NEGATIVE, U Benzodiazepines Scrn NEGATIVE, Urine Cocaine Screen NEGATIVE, U Cannabinoids Screen NEGATIVE Physical Exam Const alert, oriented x3, no apparent distress and well nourished General Appearance: cooperative HEENT normocephalic, head/scalp atraumatic, moist oral mucous membranes and oropharynx normal Eyes EOMs intact bilaterally Neck no lymphadenopathy and supple Lymph Lymphatic: no lymphedema noted Resp normal respiratory effort, normal air movement and clear to auscultation bilaterally Cardio regular rate, regular rhythm, S1 normal heart sound, S2 normal heart sound and no murmurs GI normal to inspection, nondistended, normoactive bowel sounds, soft to palpation, non-tender and non-distended Extremity normal capillary refill, no clubbing, cyanosis or edema and no calf tenderness General Extremity: no tenderness to palpation of joints or extremities Skin General Skin Exam: no breakdown Neuro CN's II-XII intact bilaterally, no focal motor deficits, no sensory deficits noted and deep tendon reflexes 2+ bilaterally Motor Exam: strength 5/5 throughout and general weakness Psych thought process normal, cooperative and affect normal Appearance: appropriate Assessment & Plan Assessment/Plan (1) Opiate withdrawal: PLAN: Plan #Acute opioid withdrawal * on opioid withdrawal protocol with buprenorphine * adjunctive meds for symptomatic relief * monitor CINA score * #HYpertension: on lisinopril, metoprolol and HCTZ as well as amlodipine. #Depression: on buspirone and sertraline. DVT prophylaxis: low risk, encourage ambulation. Charges/Coding Visit Charges Inpatient E&M: 87137 Subs Hosp L2
[2025-06-05] VITALS (10 sets, daily range): BP systolic 138–169; BP diastolic 91–114; PULSE 74–98; RESP 14–69; TEMP 36.5–38.1; O2SAT 94–97
[2025-06-05] MEDS: hydrOXYzine PAM 25 MG Capsule 50 MG PO ×5 (06:05→23:01)
--- NOTE | 2025-06-05 06:18 | NURSING ---
Pt having increase bp during night, Dr. Ramos ordered hydralazine PRN sbp >160. Bp 163/114, administered medication. Will recheck bp w/in the hour
[2025-06-05] MEDS: Metoprolol(XL)Succ 50 MG Tablet PO (09:12)
--- NOTE | 2025-06-05 13:20 | PN_ITS ---
Subjective Subjective Patient seen and examined. Patient was very tearful today. Apparently her was also on admission for detox quoted yesterday in diet. I saw patient with her meds by her bedside. She remains very tearful was asking if she could be discharged today. However I told her today was day 2 and so he would need to stay for another day here and she was agreeable to this. Repeat systems otherwise negative. Objective Data Objective Data Vital Signs: Vital Signs Temp Pulse Resp BP Pulse Ox O2 Del Method 99.6 F H 87 16 146/108 H 96 Room Air 06/05/25 08:37 06/05/25 09:12 06/05/25 08:37 06/05/25 09:12 06/05/25 08:37 06/05/25 08:43 Oxygen Delivery Method Room Air Weight: 153 lb 3.54 oz Body Mass Index (BMI) 28.0 Intake & Output: Intake and Output for Last 24 Hours 06/03/25 06/04/25 06/05/25 23:59 23:59 23:59 Intake Total 200 / 200 Balance 200 / 200 Lab / Micro Data 06/03/25 19:40 06/03/25 19:40 Physical Exam Const alert, oriented x3, no apparent distress and well nourished General Appearance: cooperative and well developed HEENT normocephalic, head/scalp atraumatic, moist oral mucous membranes and oropharynx normal Eyes PERRL and EOMs intact bilaterally Neck no lymphadenopathy and supple Lymph Lymphatic: no lymphadenopathy noted and no lymphedema noted Resp normal respiratory effort, normal air movement and clear to auscultation bilaterally Cardio regular rate, regular rhythm, S1 normal heart sound, S2 normal heart sound and no murmurs GI normal to inspection, nondistended, normoactive bowel sounds, soft to palpation, non-tender and non-distended Extremity normal capillary refill, no clubbing, cyanosis or edema and no calf tenderness General Extremity: no tenderness to palpation of joints or extremities Skin General Skin Exam: no breakdown Neuro CN's II-XII intact bilaterally, no focal motor deficits, no sensory deficits noted and deep tendon reflexes 2+ bilaterally Motor Exam: strength 5/5 throughout and general weakness Psych Mood & Affect: depressed and anxious Assessment & Plan Assessment/Plan (1) Opiate withdrawal: PLAN: Plan #Acute opioid withdrawal * on opioid withdrawal protocol with buprenorphine * adjunctive meds for symptomatic relief * monitor CINA score * #HYpertension: on lisinopril, metoprolol and HCTZ as well as amlodipine. #Depression: on buspirone and sertraline. DVT prophylaxis: low risk, encourage ambulation. Disposition: DC home tomorrow Charges/Coding Visit Charges Inpatient E&M: 24631 Subs Hosp L2
--- NOTE | 2025-06-05 19:13 | CASEMGMT ---
Social Work This director underwriter sales received notice from nursing that patient's on 06.04.2025. Presented to patient's room this evening to offer support. Upon social work arrival, patient's room dark and patient sleeping soundly - patient did not wake to knock on door or to name being called. Decided to let patient continue resting. Patient is here for RAMP services, and [employer] representatives were present on unit today and met with patient for support as well. Hospital SW remains available as needed and will check back at a later time, as schedule permits. Discharge planning as per [employer]. -KEN Arguello
[2025-06-06] MEDS: hydrOXYzine PAM 25 MG Capsule 50 MG PO ×2 (05:21→12:40)
[2025-06-06 05:27] VITALS: BP 115/84; PULSE 98; RESP 16; TEMP 36.4; O2SAT 92
--- NOTE | 2025-06-06 09:24 | DS.PCM_ITS ---
Providers Date of Admission: 06/03/25 Date of Discharge: 06/06/25 Primary Care Physician: JOSE MANUEL ZAMUDIO Reason For Visit: OPIATE WITHDRAWAL Diagnosis Discharge Diagnosis (1) Opiate withdrawal: Status: Acute Code(s): F11.93 - Opioid use, unspecified with withdrawal Plan #Acute opioid withdrawal * on opioid withdrawal protocol with buprenorphine * adjunctive meds for symptomatic relief * monitor CINA score * #HYpertension: on lisinopril, metoprolol and HCTZ as well as amlodipine. #Depression: on buspirone and sertraline. DVT prophylaxis: low risk, encourage ambulation. Disposition: IA home tomorrow Medications at Discharge Home Medications amlodipine 5 mg tablet 5 mg PO DAILY 06/03/25 buspirone 10 mg tablet 10 mg PO TID 06/03/25 hydroxyzine HCl 50 mg tablet 50 mg PO Q6H 06/03/25 lisinopril 20 mg-hydrochlorothiazide 12.5 mg tablet 1 tab PO DAILY 06/03/25 metoprolol succinate 50 mg tablet,extended release 24 hr 50 mg PO DAILY 06/03/25 pantoprazole 40 mg tablet,delayed release 40 mg PO DAILY 06/03/25 sertraline 100 mg tablet 100 mg PO DAILY 06/03/25 Hospital Course Operations None Procedures None Summary of Care Provided Minutes Spent on Discharge: 45 Hospital Course: Patient is a 47 y/o female with a PMH as outlined who was admitted via the ED On 06/06/2025 with a complaint of opioid withdrawal. She had a history of opioid use disorder using percocet. She denied any IV drug use. She was admitted and managed for acute opioid withdrawal. She was started on opioid withdrawal protocol with buprenorphine and tolerated the 3-day detox protocol. She was discharged home on 06/06/2025. She is to follow-up with her primary care doctor within 1 to 2 weeks. Patient seen and examined prior to discharge. She says she felt much better today. Patient had a very traumatic experience during her admission when her was also on admission for opioid withdrawal coded and despite ACLS resuscitation. She denies any depression or suicidal ideations. Labs and vitals reviewed. Home medication reviewed on consult. Physical Exam Const alert, oriented x3, no apparent distress and well nourished General Appearance: cooperative, comfortable and well developed Orientation / Consciousness: awake HEENT normocephalic, head/scalp atraumatic, hearing grossly normal bilaterally, moist oral mucous membranes and oropharynx normal Mouth: oral and palatal mucosa normal Eyes PERRL, EOMs intact bilaterally and conjunctivae normal Neck no lymphadenopathy and supple Lymph Lymphatic: no lymphedema noted Resp normal respiratory effort, normal air movement and clear to auscultation bilaterally Cardio regular rate, regular rhythm, S1 normal heart sound, S2 normal heart sound and no murmurs GI normal to inspection, nondistended, normoactive bowel sounds, soft to palpation, non-tender and non-distended Extremity normal to inspection, full ROM, normal capillary refill, no clubbing, cyanosis or edema and no calf tenderness General Extremity: no tenderness to palpation of joints or extremities Skin no rashes or lesions noted General Skin Exam: no breakdown Neuro oriented x3, CN's II-XII intact bilaterally, moves all extremities, no focal motor deficits, no sensory deficits noted and deep tendon reflexes 2+ bilaterally Sensorium / Orientation: awake Motor Exam: strength 5/5 throughout and general weakness Psych thought process normal, cooperative and affect normal Appearance: appropriate Weight / BMI Weight Weight: 153 lb 3.54 oz Body Mass Index (BMI) 28.0 ABG / Lab / Microbiology Data 06/03/25 19:40 06/03/25 19:40 D/C Instructions Discharge Activity: Return to Normal Activity Weight Bearing Status: Weight bearing as tolerated Call your doctor if you observe: Fever of 101 or Higher, Shortness of breath, Dizziness, Swelling in the ankles and Chest pain DC O2, CPAP, BIPAP Needs Home O2 Discharge instructions: No DC home with Oxygen: No Meaningful Use Info Meaningful Use Meaningful Use Diagnoses (Choose all that apply): None applicable Discharge Plan Admission Admit Date/Time: 06/03/25 21:43 Primary Reason for Your Visit: acute opioid withdrawal Attending Provider: Pamela Bolden Primary Care Provider: JOSE MANUEL ZAMUDIO Consulting Providers: Jan Morgan Instructions Patient Instructions: ED Opioid Withdrawal Discharge Orders/Prescriptions Prescriptions: Continued hydroxyzine HCl 50 mg tablet 50 mg PO Q6H amlodipine 5 mg tablet 5 mg PO DAILY lisinopril-hydrochlorothiazide 20-12.5 mg tablet 1 tab PO DAILY metoprolol succinate 50 mg tablet extended release 24 hr 50 mg PO DAILY sertraline 100 mg tablet 100 mg PO DAILY pantoprazole 40 mg tablet,delayed release (DR/EC) 40 mg PO DAILY buspirone 10 mg tablet 10 mg PO TID Referrals / Follow Up: JOSE MANUEL ZAMUDIO [Other] - Within 1 Week Disposition Disposition (needs filled in before D/C Order can be placed): Home, Self Care Charges/Coding Visit Charges Inpatient E&M: 60477 Disch Hosp >30min
--- NOTE | 2025-06-06 09:24 | DCINST_ITS ---
Discharge Instructions DC O2, CPAP, BIPAP needs Home O2 Discharge instructions: No Dressing / Incision Discharge Activity: Return to Normal Activity Weight Bearing Status: Weight bearing as tolerated Dressing / Incision Call your doctor if you observe: Fever of 101 or Higher, Shortness of breath, Dizziness, Swelling in the ankles and Chest pain Follow Up Care Test Results: Test results from this visit will be discussed in further detail at your follow- up appointment, if applicable. Discharge Plan Admission Admit Date/Time: 06/03/25 21:43 Primary Reason for Your Visit: acute opioid withdrawal Attending Provider: Pamela Bolden Primary Care Provider: JOSE MANUEL ZAMUDIO Consulting Providers: Jan Morgan Instructions Patient Instructions: ED Opioid Withdrawal Discharge Orders/Prescriptions Prescriptions: Continued hydroxyzine HCl 50 mg tablet 50 mg PO Q6H amlodipine 5 mg tablet 5 mg PO DAILY lisinopril-hydrochlorothiazide 20-12.5 mg tablet 1 tab PO DAILY metoprolol succinate 50 mg tablet extended release 24 hr 50 mg PO DAILY sertraline 100 mg tablet 100 mg PO DAILY pantoprazole 40 mg tablet,delayed release (DR/EC) 40 mg PO DAILY buspirone 10 mg tablet 10 mg PO TID Referrals / Follow Up: JOSE MANUEL ZAMUDIO [Other] - Within 1 Week Disposition Disposition (needs filled in before D/C Order can be placed): Home, Self Care
[2025-06-06 10:19] VITALS: BP 124/90; PULSE 110; RESP 14; TEMP 37.1; O2SAT 103
--- NOTE | 2025-06-06 10:39 | CASEMGMT ---
Social Work Pt's mother in law Joann called in to say that pt's car is not here, it was picked up. SW spoke w/pt in regard to discharge plan initially, she plans to get home, states she "has to" get home, does not anticipate any issues. SW spoke w/her about the sudden loss of her . They were not but together for four years. SW offered support to pt. SW spoke to pt about following up w/, she has not yet spoken w/Monika from . SW spoke w/her about both outpt and residential services, pt states she wants to go home. SW also spoke w/pt about applying for disability. Pt explains she wants to apply but is overwhelmed w/how to do it. SW explained will get her information on this. SW did offer to get pt resources for counseling and bereavement counseling, and housing assistance should she need it. SW then got a call from Josselyn with [employer] offering pt case management. SW explained will pass this information on to pt. SW did give pt information for [employer], counseling and bereavement resources, and the information to apply for [employer] Case management. Pt had mentioned that her car is here, the assistant secretary had set up transport for pt at 3pm w/the hospital van. SW did let her know that Joann had called in and said that the car is not here. Pt would like to access her phone and belongings, SW did get permission from the credit charge authorizer to allow her into her belongings, and the belongings box was opened for pt. SW let pt know that SW is here until she leaves if she needs to speak w/SW again. Pt thanked OLIVA for speaking w/her. MARIBETH Xiong
[2025-06-06 10:45] VITALS: BP 124/90; PULSE 110
[2025-06-06] MEDS: Metoprolol(XL)Succ 50 MG Tablet PO (10:45)
--- NOTE | 2025-06-06 10:47 | ADDICTION ---
Met with patient to discuss treatment options, complete the RAMP assessments and discuss discharge planning. Pt came to detox with significant other to seek help together. While in detox the SO . Patient was given resources for [facility] and other social studies department chair agencies in the area. Pt reports she has no intentions for use. Clinician discussed with her the relapse potentials as well as the high leve of anxiety and stress she is going through and ways to manage those feelings. She agreed to contact [employer] once she returns home.
--- NOTE | 2025-06-06 13:08 | CASEMGMT ---
Social Work Pt got a ride home, SW confirmed w/pt. SW walked pt to the entrance to meet her friend. SW canceled the van transport w/[facility] van. MARIBETH Xiong
== END 2025-06-06 12:54 | disposition home or self-care (01) | DRG 773 ==
LOC: ED 22:07 → PCU 22:09
PROVIDERS: Admitting Provider Family Medicine; Emergency Provider Surgery; Visit Provider Student in an Organized Health Care Education/Training Program
DX: F11.93 Opioid use, unspecified with withdrawal (principal); F17.210 Nicotine dependence, cigarettes, uncomplicated; F32.A Depression, unspecified; I10 Essential (primary) hypertension; F41.9 Anxiety disorder, unspecified; Z79.899 Other long term (current) drug therapy
CPT/HCPCS: 80048; 80307; 82077; 84703; 85025; 99285; 99406